=== PATIENT | male | born 1945 | race Caucasian/White ===

== ENCOUNTER 2018-07-25 21:21 | Inpatient (IN) | payer MEDICARE ==
[2018-07-25] MEDS ORDERED: methylPREDNISolone SOD SUCCI 125 MG/2 ML VIAL IV STA (21:55)
[2018-07-25] MEDS ORDERED: SODIUM CHLORIDE 0.9% 1,000 ML IV STA (21:55)
[2018-07-25] MEDS ORDERED: IPRATROPIUM-ALBUTEROL 3 ML NEB INHALATION STA (21:55)
--- NOTE | 2018-07-25 22:01 | ED ---
SOB HPI - General Chief Complaint: Shortness of Breath Stated Complaint: SOB/fever Time Seen by Provider: 07/25/18 21:34 Source: patient, family, RN notes reviewed Mode of arrival: wheelchair Limitations: no limitations - History of Present Illness Initial Comments: This is a 73-year-old male with a history of asbestosis who presents with complaints of shortness of breath cough with fevers chills sweats phlegm production is yellow and green phlegm on left-sided chest discomfort. This is been over last couple days. He has had what he believes is adequate nutrition. MD Complaint: shortness of breath, cough - Related Data Home Medications Medication Instructions Recorded Confirmed Dipyridamole-Aspirin 200-25 mg 1 cap PO BID 04/27/14 07/25/18 [Aggrenox 25MG -200MG] Lisinopril-Hctz 10-12.5 mg 1 tab PO DAILY 04/27/14 07/25/18 [Zestoretic 10-12.5] Mometasone Inhalr 220 Mcg/Puff 2 puff INHALATION RT-HS 04/27/14 07/25/18 [Asmanex] Guaifenesin/Dextromethorphan 1 - 2 cap PO Q6HR PRN MDD 8 TABS 07/25/18 07/25/18 [Coricidin Hbp Softgel] Olodaterol HCl [Striverdi Respimat] 2 spray INHALATION RT-DAILY 07/25/18 Tiotropium [place] [Spiriva 1 puff INHALATION RT-DAILY 07/25/18 07/25/18 Respimat] rOPINIRole HCL [Requip] 5 mg PO HS 07/25/18 07/25/18 Allergies Allergy/AdvReac Type Severity Reaction Status Date / Time No Known Allergies Allergy Verified 07/25/18 21:39 Review of Systems ROS Statement: Those systems with pertinent positive or pertinent negative responses have been documented in the HPI. ROS Other: All systems not noted in ROS Statement are negative. Past Medical History Past Medical History: COPD, CVA/TIA, GERD/Reflux, Hyperlipidemia, Hypertension Additional Past Medical History / Comment(s): PT STATES HAS HAD NUMEROUS TIA'S. CHRONIC BACK PAIN, AORTIC ANEURYSM, ON O2 2L/NC 24/7 History of Any Multi-Drug Resistant Organisms: None Reported Past Surgical History: Back Surgery, Hernia Repair Additional Past Surgical History / Comment(s): COLONOSCOPY Past Anesthesia/Blood Transfusion Reactions: No Reported Reaction Past Psychological History: Anxiety, Depression Smoking Status: Former smoker Past Alcohol Use History: None Reported Past Drug Use History: None Reported - Past Family History Mother Family Medical History: Cancer Brother(s) Family Medical History: Cancer General Exam - General Exam Comments Initial Comments: This is a well-developed well-nourished awake alert oriented times 3 male Limitations: no limitations General appearance: alert Head exam: Present: atraumatic, normocephalic, normal inspection Eye exam: Present: normal appearance, PERRL, EOMI. Absent: scleral icterus, conjunctival injection, periorbital swelling ENT exam: Present: mucous membranes dry Neck exam: Present: normal inspection. Absent: tenderness, meningismus, lymphadenopathy Respiratory exam: Present: rhonchi (Left lower lobe rhonchi), decreased breath sounds. Absent: respiratory distress, wheezes, rales, stridor Cardiovascular Exam: Present: regular rate, normal rhythm, normal heart sounds. Absent: systolic murmur, diastolic murmur, rubs, gallop, clicks GI/Abdominal exam: Present: soft, normal bowel sounds. Absent: distended, tenderness, guarding, rebound, rigid Extremities exam: Present: normal inspection, full ROM, normal capillary refill. Absent: tenderness, pedal edema, joint swelling, calf tenderness Back exam: Present: normal inspection Neurological exam: Present: alert, oriented X3, CN II-XII intact Psychiatric exam: Present: normal affect, normal mood Skin exam: Present: warm, dry, intact, normal color. Absent: rash Course Vital Signs 07/25/18 07/25/18 07/25/18 21:23 22:07 22:18 Temperature 101 F H Pulse Rate 100 80 89 Respiratory 20 Rate Blood Pressure 134/66 O2 Sat by Pulse 89 L Oximetry 07/25/18 07/26/18 23:07 00:20 Temperature Pulse Rate 85 84 Respiratory 16 20 Rate Blood Pressure 113/64 105/64 O2 Sat by Pulse 96 95 Oximetry Medical Decision Making - Medical Decision Making Reevaluation patient reveals the patient is breathing better he still has wheezing is still short of breath I did discuss Pfizer him and his family as well as with Dr. Antonio patient will be admitted for evaluation of interstitial pneumonia COPD exacerbation febrile illness - Lab Data Result diagrams: 07/25/18 21:42 07/25/18 21:42 Lab Results 07/25/18 07/25/18 07/25/18 Range/Units 21:42 21:42 21:42 WBC 13.6 H (3.8-10.6) k/uL RBC 4.11 L (4.30-5.90) m/uL Hgb 12.4 L (13.0-17.5) gm/dL Hct 38.4 L (39.0-53.0) % MCV 93.5 (80.0-100.0) fL MCH 30.0 (25.0-35.0) pg MCHC 32.1 (31.0-37.0) g/dL RDW 13.3 (11.5-15.5) % Plt Count 303 (150-450) k/uL Neutrophils % 83 % Lymphocytes % 9 % Monocytes % 6 % Eosinophils % 1 % Basophils % 0 % Neutrophils # 11.3 H (1.3-7.7) k/uL Lymphocytes # 1.2 (1.0-4.8) k/uL Monocytes # 0.7 (0-1.0) k/uL Eosinophils # 0.2 (0-0.7) k/uL Basophils # 0.0 (0-0.2) k/uL PT (9.0-12.0) sec INR (<1.2) APTT (22.0-30.0) sec Sodium 139 (137-145) mmol/L Potassium 4.2 (3.5-5.1) mmol/L Chloride 108 H (98-107) mmol/L Carbon Dioxide 24 (22-30) mmol/L Anion Gap 7 mmol/L BUN 20 (9-20) mg/dL Creatinine 1.08 (0.66-1.25) mg/dL Est GFR (CKD-EPI)AfAm 78 (>60 ml/min/1.73 sqM) Est GFR (CKD-EPI)NonAf 67 (>60 ml/min/1.73 sqM) Glucose 110 H (74-99) mg/dL Calcium 9.2 (8.4-10.2) mg/dL Magnesium 2.0 (1.6-2.3) mg/dL Total Bilirubin 0.4 (0.2-1.3) mg/dL AST 25 (17-59) U/L ALT 27 (21-72) U/L Alkaline Phosphatase 68 (38-126) U/L Total Creatine Kinase 214 H (55-170) U/L CK-MB (CK-2) 3.8 H (0.0-2.4) ng/mL CK-MB (CK-2) Rel Index 1.8 Troponin I <0.012 (0.000-0.034) ng/mL NT-Pro-B Natriuret Pep pg/mL Total Protein 5.9 L (6.3-8.2) g/dL Albumin 3.3 L (3.5-5.0) g/dL 07/25/18 07/25/18 Range/Units 21:42 21:42 WBC (3.8-10.6) k/uL RBC (4.30-5.90) m/uL Hgb (13.0-17.5) gm/dL Hct (39.0-53.0) % MCV (80.0-100.0) fL MCH (25.0-35.0) pg MCHC (31.0-37.0) g/dL RDW (11.5-15.5) % Plt Count (150-450) k/uL Neutrophils % % Lymphocytes % % Monocytes % % Eosinophils % % Basophils % % Neutrophils # (1.3-7.7) k/uL Lymphocytes # (1.0-4.8) k/uL Monocytes # (0-1.0) k/uL Eosinophils # (0-0.7) k/uL Basophils # (0-0.2) k/uL PT 10.4 (9.0-12.0) sec INR 1.1 (<1.2) APTT 28.1 (22.0-30.0) sec Sodium (137-145) mmol/L Potassium (3.5-5.1) mmol/L Chloride (98-107) mmol/L Carbon Dioxide (22-30) mmol/L Anion Gap mmol/L BUN (9-20) mg/dL Creatinine (0.66-1.25) mg/dL Est GFR (CKD-EPI)AfAm (>60 ml/min/1.73 sqM) Est GFR (CKD-EPI)NonAf (>60 ml/min/1.73 sqM) Glucose (74-99) mg/dL Calcium (8.4-10.2) mg/dL Magnesium (1.6-2.3) mg/dL Total Bilirubin (0.2-1.3) mg/dL AST (17-59) U/L ALT (21-72) U/L Alkaline Phosphatase (38-126) U/L Total Creatine Kinase (55-170) U/L CK-MB (CK-2) (0.0-2.4) ng/mL CK-MB (CK-2) Rel Index Troponin I (0.000-0.034) ng/mL NT-Pro-B Natriuret Pep 162 pg/mL Total Protein (6.3-8.2) g/dL Albumin (3.5-5.0) g/dL - EKG Data -: EKG Interpreted by Me EKG shows normal: sinus rhythm (Sinus rhythm rate 84. Interval 154 QRS duration 96 QT since QTC 346/4 weight evidence a left exodeviation) - Radiology Data Radiology results: report reviewed (I did review the imaging and report evidence of interstitial markings), image reviewed Critical Care Time Critical Care Time: Yes Critical Care Time: 33 minutes of critical care time which includes initial presentation with history physical labs x-rays reevaluation patient several occasions discuss with the patient family regarding findings discussed with the family that time. Discussion with the admitting physician admission orders and documentation of the above Disposition Clinical Impression: Acute exacerbation of chronic obstructive airways disease, Adult respiratory distress syndrome, Interstitial pneumonia, Febrile illness, acute Disposition: ADMITTED IP TO THIS [facility] Referrals: Luis Price MD [Primary Care Provider] - 1-2 days
[2018-07-25 22:09] LABS: Basophils % (A) 0 %; Eosinophils # (A) 0.2 k/uL (0-0.7); Eosinophils % (A) 1 %; HCT 38.4 % (39.0-53.0); HGB 12.4 gm/dL (13.0-17.5); Lymphocytes # (A) 1.2 k/uL (1.0-4.8); Lymphocytes % (A) 9 %; MCHC 32.1 g/dL (31.0-37.0); MCV 93.5 fL (80.0-100.0); Mean Platelet Volume 6.7; Monocytes # (A) 0.7 k/uL (0-1.0); Monocytes % (A) 6 %; Neutrophils # (A) 11.3 k/uL (1.3-7.7); Neutrophils % (A) 83 %; Platelet Count 303 k/uL (150-450); RBC 4.11 m/uL (4.30-5.90); RDW 13.3 % (11.5-15.5); WBC 13.6 k/uL (3.8-10.6)
--- NOTE | 2018-07-25 22:13 | XR ---
EXAMINATION TYPE: XR chest 2V DATE OF EXAM: 07/25/2018 COMPARISON: 06/23/1713 HISTORY: Short of breath TECHNIQUE: Frontal and lateral views of the chest are obtained. FINDINGS: There is extensive pulmonary interstitial infiltrate. Heart size is normal. There is no pl eural effusion. Thoracic aorta is atheromatous. Bony thorax is intact. IMPRESSION: Pulmonary interstitial fibrosis improved slightly compared to old exam. No heart failure .
[2018-07-25 22:19] LABS: Albumin 3.3 g/dL (3.5-5.0); Calcium 9.2 mg/dL (8.4-10.2); Potassium 4.2 mmol/L (3.5-5.1); Total Bilirubin 0.4 mg/dL (0.2-1.3); Total Protein 5.9 g/dL (6.3-8.2)
[2018-07-25 22:20] LABS: INR 1.1 (<1.2); Partial Thromboplastin Time 28.1 sec (22.0-30.0); Prothrombin Time 10.4 sec (9.0-12.0)
[2018-07-25 22:24] LABS: Creatine Kinase 214 U/L (55-170)
[2018-07-25 22:37] LABS: Creatine Kinase MB 3.8 ng/mL (0.0-2.4); Troponin I <0.012 ng/mL (0.000-0.034)
[2018-07-26] MEDS ORDERED: PNEUMONIA PROTOCOL UTILIZED 1 EACH MISC PO PRN (00:57)
[2018-07-26] MEDS ORDERED: AZITHROMYCIN 500 MG in SODIUM CHLORIDE 0.9% 250 ML IVPB STA (00:57)
[2018-07-26] MEDS ORDERED: ACETAMINOPHEN TAB 325 MG TAB PO PRN (01:02)
[2018-07-26] MEDS: SODIUM CHLORIDE 0.9% 1,000 ML IV SCH ×2 (02:10→11:29)
[2018-07-26 02:29] VITALS: BMI 25.1
[2018-07-26] MEDS ORDERED: IPRATROPIUM-ALBUTEROL 3 ML NEB INHALATION SCH (04:00)
[2018-07-26] MEDS: methylPREDNISolone SOD SUCCI 125 MG/2 ML VIAL IV SCH ×3 (05:50→17:07)
[2018-07-26] MEDS: LISINOPRIL-HCTZ 10-12.5 MG 1 EACH TAB PO SCH (07:15)
[2018-07-26] MEDS: DIPYRIDAMOLE-ASPIRIN 200-25 MG 1 EACH CPMP.12HR PO SCH ×2 (07:15→21:47)
[2018-07-26 07:31] LABS: Glucose,Whole Blood 167 mg/dL (75-99)
[2018-07-26] MEDS: IPRATROPIUM-ALBUTEROL 3 ML NEB INHALATION SCH ×4 (07:44→19:45)
[2018-07-26 11:23] LABS: Glucose,Whole Blood 207 mg/dL (75-99)
[2018-07-26] MEDS: INSULIN ASPART 100 UNIT/ML 1 ML 10 ML VIAL SQ SCH ×3 (12:38→21:50)
--- NOTE | 2018-07-26 12:47 | P.CNPUL ---
History of Present Illness Consult date: 07/26/18 Reason for consult: dyspnea History of present illness: 73-year-old male patient with known history of COPD, asbestosis, and pulmonary fibrosis. The patient is also post-ARDS related to a previous pneumonia. He has an FEV1 of 79% and a DLCO of 37% and he is O3 3l/min. The patient is seeing me for his routine checkup. I repeated a CAT scan of the chest that was done in 2015 and this was compared to the prior CAT scan of 2014. There is again bilateral emphysematous change, pleural plaquing related to asbestosis, some on a combination in the lung bases bilaterally however in comparison there is no significant interval change or progression in his pulmonary fibrosis. On previous CT images of the abdomen and the chest, There was some emphysema and scarring in the lung bases, and adrenal adenoma measuring 1.4 cm in size, a stable abdominal aortic aneurysm measuring 3.8 cm in size, and prostate enlargement with bilateral inguinal hernias. He has severe degenerative disc disease at the level of L4-L5 and L2-L3 with loss of normal lordosis of the spine and chronic rib deformity suggestive of previous trauma.the patient was having abnormal weight loss which has recovered and he is up in his weight. He is currently on a combination of Spiriva, Asmanex and Striverdi and [facility] This patient was in a good state of health. Approximately a week ago started having increased cough chest congestion and fever and chills and he was producing sputum that was yellowish and then greenish and he also had some left- sided chest pain. Based on that he came into the hospital. He is white cell count was at 13.6. No significant electrodes abnormalities and renal function was within normal limits. Chest x-ray showed COPD and chronic interstitial changes related to asbestosis and pulmonary fibrosis. The EKG showed left axis deviation otherwise no acute adenoma is were seen. The patient is currently on examination Rocephin and Zithromax. He was also started on IV Solu-Medrol. He has been marked improvement in symptoms over the past 24 hours and the patient is feeling much improved and nearly close to his baseline. No fever. No chills. Hemodynamically stable. No aspiration. No travel. No pleurisy. No hemoptysis. Review of Systems Constitutional: Reports chills, Reports fever Eyes: denies blurred vision, denies bulging eye, denies decreased vision Ears: deny: decreased hearing, ear discharge, earache, tinnitus Ears, nose, mouth and throat: Denies headache, Denies sore throat Cardiovascular: Reports decreased exercise tolerance, Reports dyspnea on exertion Respiratory: Reports cough, Reports cough with sputum, Reports dyspnea Gastrointestinal: Denies abdominal pain, Denies diarrhea, Denies nausea, Denies vomiting Genitourinary: Reports as per HPI Musculoskeletal: Reports as per HPI Musculoskeletal: absent: ankle pain, ankle stiffness, ankle swelling Integumentary: Denies pruritus, Denies rash Neurological: Reports as per HPI Psychiatric: Reports as per HPI Endocrine: Reports as per HPI Hematologic/Lymphatic: Reports as per HPI Allergic/Immunologic: Reports as per HPI Past Medical History Past Medical History: COPD, CVA/TIA, GERD/Reflux, Hyperlipidemia, Hypertension Additional Past Medical History / Comment(s): COPD, chronic hypoxic respiratory failure, has been stenosis, chronic back to point fibrosis, hypertension, hyperlipidemia, previous history of CVA/TIA, chronic back pain, abdominal aortic aneurysm, 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 History of Any Multi-Drug Resistant Organisms: None Reported Past Surgical History: Back Surgery, Hernia Repair Additional Past Surgical History / Comment(s): COLONOSCOPY Past Anesthesia/Blood Transfusion Reactions: No Reported Reaction Past Psychological History: Anxiety, Depression Smoking Status: Former smoker Past Alcohol Use History: None Reported Past Drug Use History: None Reported - Past Family History Mother Family Medical History: Cancer Brother(s) Family Medical History: Cancer Medications and Allergies Home Medications Medication Instructions Recorded Confirmed Type Dipyridamole-Aspirin 200-25 mg 1 cap PO BID 04/27/14 07/25/18 History [Aggrenox 25MG -200MG] Lisinopril-Hctz 10-12.5 mg 1 tab PO DAILY 04/27/14 07/25/18 History [Zestoretic 10-12.5] Mometasone Inhalr 220 Mcg/Puff 2 puff INHALATION RT-HS 04/27/14 07/25/18 History [Asmanex] Guaifenesin/Dextromethorphan 1 - 2 cap PO Q6HR PRN MDD 8 TABS 07/25/18 07/25/18 History [Coricidin Hbp Softgel] Olodaterol HCl [Striverdi Respimat] 2 spray INHALATION RT-DAILY 07/25/18 History Tiotropium [place] [Spiriva 1 puff INHALATION RT-DAILY 07/25/18 07/25/18 History Respimat] rOPINIRole HCL [Requip] 5 mg PO HS 07/25/18 07/25/18 History Allergies Allergy/AdvReac Type Severity Reaction Status Date / Time No Known Allergies Allergy Verified 07/25/18 21:39 Physical Exam Vitals: Vital Signs Temp Pulse Pulse Resp BP BP Pulse Ox 07/26/18 07:52 92 07/26/18 07:45 95 07/26/18 07:44 88 07/26/18 07:10 18 07/26/18 05:40 98.7 F 84 24 130/73 95 07/26/18 01:22 99.9 F H 76 16 117/67 96 07/26/18 00:20 84 20 105/64 95 07/25/18 23:07 85 16 113/64 96 07/25/18 22:18 89 07/25/18 22:07 80 07/25/18 21:23 101 F H 100 20 134/66 89 L Intake and Output 07/25/18 07/26/18 07/26/18 22:59 06:59 14:59 Other: Voiding Method Toilet Weight 81.647 kg 81.64 kg Gen. appearance, comfortable likely distress. Head exam was generally normal. There was no scleral icterus or corneal arcus. Mucous membranes were moist. Neck was supple and without jugular venous distension, thyromegaly, or carotid bruits. Carotids were easily palpable bilaterally. There was no adenopathy. Lungs sounds are diminished and the patient has coarse crackles in lung bases bilaterally. The crackles are worse on the right compared to the left. Few scattered expiratory wheeze. Cardiac exam revealed the PMI to be normally situated and sized. The rhythm was regular and no extrasystoles were noted during several minutes of auscultation. The first and second heart sounds were normal and physiologic splitting of the second heart sound was noted. There were no murmurs, rubs, clicks, or gallops. Abdominal exam revealed normal bowel sounds. The abdomen was soft, non-tender, and without masses, organomegaly, or appreciable enlargement of the abdominal aorta. Examination of the extremities revealed easily palpable radial, femoral and pedal pulses. There was no cyanosis, clubbing or edema. Examination of the skin revealed no evidence of significant rashes, suspicious appearing nevi or other concerning lesions. Neurologically awake and alert and there is no focal neurological deficit Results - Laboratory Findings CBC and BMP: 07/25/18 21:42 07/25/18 21:42 PT/INR, D-dimer PT 10.4 sec (9.0-12.0) 07/25/18 21:42 INR 1.1 (<1.2) 07/25/18 21:42 Abnormal lab findings: Abnormal Labs 07/25/18 07/25/18 07/25/18 21:42 21:42 21:42 WBC 13.6 H RBC 4.11 L Hgb 12.4 L Hct 38.4 L Neutrophils # 11.3 H Chloride 108 H Glucose 110 H POC Glucose (mg/dL) Total Creatine Kinase 214 H CK-MB (CK-2) 3.8 H Total Protein 5.9 L Albumin 3.3 L 07/26/18 06:55 WBC RBC Hgb Hct Neutrophils # Chloride Glucose POC Glucose (mg/dL) 167 H Total Creatine Kinase CK-MB (CK-2) Total Protein Albumin - Diagnostic Findings Chest x-ray: image reviewed Assessment and Plan Plan: Assessment 1 acute COPD exacerbation/acute orchitis, improving. The patient's chest x-ray shows no evidence of any pneumonias consistent with tonic COPD and interstitial lung disease secondary to asbestosis. He also has chronic pulmonary fibrotic changes 2 shortness of breath secondary to above, improving 3 advanced COPD with chronic hypoxic respiratory failure maintained on a combination of Spiriva, Asmanex and Striverdi on outpatient basis 4 chronic hypoxic respiratory failure maintained on oxygen at 3 L per minute nasal cannula 5 adrenal adenoma measuring 1.4 cm 6 abdominal aortic aneurysm measuring 2.8 cm in size 7 bilaterally without hernias 8 BPH 9 degenerative disc disease involving the lumbar spine 10 previous history of TIAs/multiple/CVA 11 chronic anxiety/depression Plan Clinically much improved. Continue same treatment which includes a combination of bronchodilators there was an antibiotics. Patient is nearly recovered and the patient is feeling back to his baseline. Reviewed the chest x-ray. Reviewed the blood work. We'll continue treatment for another 24 hours and possible discharge in the next 24 hours if the patient has no new complaints.
[2018-07-26 17:25] LABS: Glucose,Whole Blood 189 mg/dL (75-99)
[2018-07-26 20:42] LABS: Glucose,Whole Blood 231 mg/dL (75-99)
[2018-07-26 21:16] LABS: Hemoglobin A1C 6.1 % (4.0-6.0)
[2018-07-26] MEDS ORDERED: LACTULOSE 20 GM/30 ML CUP PO PRN (21:16)
[2018-07-26] MEDS: BUDESONIDE 1 MG/2 ML NEBU INHALATION SCH (21:16)
[2018-07-26] MEDS ORDERED: MELATONIN 3 MG TABLET PO PRN (21:16)
[2018-07-26] MEDS ORDERED: ALPRAZolam 0.25 MG TAB PO PRN (21:16)
[2018-07-26] MEDS ORDERED: MAGNESIUM HYDROXIDE 2,400 MG/10 ML CUP PO PRN (21:16)
[2018-07-26] MEDS ORDERED: ONDANSETRON 4 MG/2 ML VIAL IVP PRN (21:16)
[2018-07-26] MEDS: guaiFENesin 600 MG TABLET.ER PO SCH (21:51)
--- NOTE | 2018-07-26 22:25 | HP ---
HISTORY AND PHYSICAL DATE OF ADMISSION: 07/26/2018 DATE OF SERVICE: 07/26/2018. PRESENTING COMPLAINT: Short of breath, cough. HISTORY OF PRESENTING COMPLAINT: This is a very pleasant 73-year-old patient who follows with Dr. Price, his family doctor, and Dr. Mccall, his medical device sales representative. Chronic stable medical conditions include asbestosis, GERD, hypertension, hyperlipidemia, on home oxygen 3 L, anxiety, depression, restless legs syndrome. The patient is an ex-smoker and has underlying COPD. For 2 days he became more and more short of breath, cough, putting out green sputum. Denied any obvious fever or chills. Appetite a bit rundown, tired. Admitted, started on bronchodilators and antibiotics in the ER, [facility], admitted for the same. Does feel a bit tired and rundown. REVIEW OF SYSTEMS: CONSTITUTIONAL: Weak and tired. HEENT: None. RESPIRATORY: As above. CARDIOVASCULAR: None. GASTROINTESTINAL: Heartburn. GENITOURINARY: None. MUSCULOSKELETAL: Arthritic pain in the joints. DERMATOLOGICAL: None. HEMATOLOGICAL: None. LYMPHATICS: None. PSYCHIATRY: Anxiety, depression, controlled. NEUROLOGICAL: Restless leg syndrome. PAST MEDICAL HISTORY: 1. COPD. 2. Multiple TIAs. 3. GERD. 4. Hyperlipidemia. 5. Hypertension. 6. Home oxygen 3 L. 7. Abdominal aortic aneurysm. 8. Severe DJD involving the lumbar spine. 9. Abdominal aortic aneurysm, probably 4.2 cm. PAST SURGICAL HISTORY: Back surgery and hernia repair. PSYCH HISTORY: Anxiety and depression. SOCIAL HISTORY: . Used to be a outside machinist supervisor. Smoked a pack a day for close to 50 years, stopped about 5 years ago. No significant alcohol intake. FAMILY HISTORY: Cancer, type unknown. HOME MEDICATIONS: 1. Requip 5 mg b.i.d. 2. Spiriva 1 puff daily. 3. Olodaterol 2 spray inhalations daily. 4. Asmanex 2 puffs at bedtime. 5. Zestoretic 07/15.5 one tablet p.o. daily. 6. Coricidin soft gel 1-2 capsules p.o. q.6 p.r.n. 7. Aggrenox 1 capsule p.o. b.i.d. ALLERGIES: NONE. PHYSICAL EXAMINATION: VITAL SIGNS ON PRESENTATION: Temperature 101, pulse 100, respiration 20, blood pressure 134/66, pulse ox 89% on 3 L. GENERAL APPEARANCE: Average build. Sitting up, tired-appearing. EYES: Pupils equal. Conjunctivae normal. HEENT: External appearance of nose and ears normal. Oral cavity normal. NECK: JVD not raised. Mass not palpable. RESPIRATORY: Effort increased. LUNGS: Decreased breath sounds. Prolonged expiration. Scattered coarse crackles. CARDIOVASCULAR: First and second sounds normal. No edema. ABDOMEN: Soft, non-tender. Liver and spleen not palpable. LYMPHATIC: No lymph node palpable in neck or axillae. PSYCHIATRY: Alert and oriented x3. Mood and affect normal. NEUROLOGICAL: Pupils equal. Cranial nerves grossly intact. Power and sensation grossly intact. MUSCULOSKELETAL: Evidence of osteoarthritis, especially in the hands. INVESTIGATIONS: White count 13.6, hemoglobin 12.4, potassium 4.2. BUN and creatinine are normal. Troponin negative. ProBNP 162. Chest x-ray film, personally reviewed by me; cannot differentiate extensive pulmonary interstitial infiltrates from acute on chronic form. EKG tracing, personally reviewed by me, shows normal sinus rhythm. ASSESSMENT: 1. This is a patient who has got chronic lung changes but had a fever of 101, leukocytosis and sputum production; most likely underlying pneumonia, suspect gram- negative organism with the sputum green in color. 2. Acute chronic obstructive pulmonary disease exacerbation in an ex-smoker. 3. Acute hypoxic respiratory failure, present on admission, from underlying pneumonia and chronic obstructive pulmonary disease. 4. Chronic hypoxic respiratory failure. 5. Chronic asbestosis. 6. Gastroesophageal reflux disease. 7. Essential hypertension. 8. Hyperlipidemia. 9. Anxiety and depression not otherwise specified. 10.Restless legs syndrome. PLAN: Patient is started on IV antibiotics. Sputum will be sent off for Gram stain and culture. Will add Mucinex. Home medications are resumed. Patient also was put on IV Solu-Medrol; also given IV fluids. Lovenox for DVT prophylaxis. Care was discussed with the patient. Questions were answered. MMODL / IJN: [id number] /
[2018-07-27] MEDS: SODIUM CHLORIDE 0.9% 1,000 ML IV SCH ×3 (00:17→18:21)
[2018-07-27] MEDS: methylPREDNISolone SOD SUCCI 125 MG/2 ML VIAL IV SCH ×4 (00:18→18:20)
[2018-07-27] MEDS ORDERED: AZITHROMYCIN 500 MG TAB PO SCH (01:00)
[2018-07-27] MEDS: BUDESONIDE 1 MG/2 ML NEBU INHALATION SCH ×2 (07:45→20:52)
[2018-07-27] MEDS: IPRATROPIUM-ALBUTEROL 3 ML NEB INHALATION SCH ×4 (07:45→20:52)
[2018-07-27 07:46] LABS: Glucose,Whole Blood 145 mg/dL (75-99)
[2018-07-27] MEDS: DIPYRIDAMOLE-ASPIRIN 200-25 MG 1 EACH CPMP.12HR PO SCH ×2 (08:17→21:52)
[2018-07-27] MEDS: guaiFENesin 600 MG TABLET.ER PO SCH ×2 (08:17→21:52)
[2018-07-27] MEDS: INSULIN ASPART 100 UNIT/ML 1 ML 10 ML VIAL SQ SCH ×4 (08:17→21:59)
[2018-07-27] MEDS: LISINOPRIL-HCTZ 10-12.5 MG 1 EACH TAB PO SCH (08:17)
[2018-07-27] MEDS: ENOXAPARIN 40 MG/0.4 ML SYRINGE SQ SCH (08:18)
--- NOTE | 2018-07-27 09:42 | XR ---
EXAMINATION TYPE: XR chest 2V DATE OF EXAM: 07/27/2018 COMPARISON: 07/25/2018 TECHNIQUE: PA and lateral views submitted. HISTORY: Pneumonia, difficulty breathing FINDINGS: Diffuse interstitial pattern suggestive of chronic interstitial lung disease. Findings are similar to the prior exam. No sizable pleural effusion or pneumothorax. Findings are suspicious for a mass with in the left upper lobe measuring 1.6 cm. Atherosclerotic change of the aorta is noted. Ectasia of the aortic knob. Aneurysm not excluded. IMPRESSION: 1. Interstitial pattern is stable correlate for chronic interstitial pulmonary fibrosis. Superimposed pneumonitis not excluded. Superimposed left lower lobe infiltrate not excluded. 2. There is findings suggestive of a 1.5 cm left upper lobe pulmonary mass recommend CT chest.
[2018-07-27 12:21] LABS: Glucose,Whole Blood 192 mg/dL (75-99)
--- NOTE | 2018-07-27 13:47 | CDI ---
Last Revision, September 2017 Documentation Clarification Form Date: 07/26/18 From: Edilma De La Garza RN Admit Date: 07/26/2018 12:56:00 pm Patient Name: Jono Carlson Visit Number: [id number] ATTENTION: The Clinical Documentation Specialists (CDI) and [facility] Coding Staff appreciate your assistance in clarifying documentation. Please respond to the clarification below the line at the bottom and electronically sign. The CDI & [facility] Coding staff will review the response and follow-up if needed. Please note: Queries are made part of the Legal Health Record. If you have any questions, please contact the author of this message via ITS. Heath Cox MD, Can you please render your opinion on the following documentation? Pt. was admitted with cough, fevers, chills sweats, phlegm production yellow and green, left sided chest discomfort, acute exacerbation COPD, adult respiratory distress syndrome, interstitial pneumonia, febrile illness History/Risk Factors: asbestosis, HTN, hyperlipidemia, home oxygen 3L, TIA, syndrome, COPD, ex-smoker, abdominal aortic aneurysm Clinical Indicators: WBC on admission: 13.6 Lactic acid: not drawn Blood cultures: preliminary no growth after 24 hours Sputum culture: polymorphonuclear leukocytes, epithelial cells, moderate gram positive cocci, few gram positive bacilli, rare gram neg. bacilli. Vitals signs on admission: T 101, P 100, R 20, 134/66, 89% 3L Treatment: Antibiotics: Azithromycin IVPB, Ceftriaxone IVPB, Pneumonia protocol Tylenol In your professional opinion, please clarify if these findings signify one of the following conditions, whether the condition is POA, and cause, if known: Condition Sepsis ruled in Sepsis ruled out SIRS, without underlying infectious process Other, please specify Unable to determine Present on Admission: Yes No Identify the (suspected) organism SIRS Criteria...2 or more of the following may indicate SIRS: Temperature < 96.8F (36C) or > 101.0F (38.3C) Heart Rate > 90 bpm Respiratory Rate > 20 breaths/min or PaCO2 < 32 mmHg White Blood Cell Count > 12,000 or < 4,000 cells/mm3 or > 10% bands Lactate >2.0 mmol/L (>4.0 is equivalent to septic shock) see my documentation-addressed Please continue to document in your progress notes and discharge summary in order to capture severity of illness and risk of mortality. Include clinical findings that support your diagnosis. MTDD
--- NOTE | 2018-07-27 17:18 | P.PN ---
Subjective Progress Note Date: 07/27/18 73-year-old male patient with known history of COPD, asbestosis, and pulmonary fibrosis. The patient is also post-ARDS related to a previous pneumonia. He has an FEV1 of 79% and a DLCO of 37% and he is O3 3l/min. The patient is seeing me for his routine checkup. I repeated a CAT scan of the chest that was done in 2015 and this was compared to the prior CAT scan of 2014. There is again bilateral emphysematous change, pleural plaquing related to asbestosis, some on a combination in the lung bases bilaterally however in comparison there is no significant interval change or progression in his pulmonary fibrosis. On previous CT images of the abdomen and the chest, There was some emphysema and scarring in the lung bases, and adrenal adenoma measuring 1.4 cm in size, a stable abdominal aortic aneurysm measuring 3.8 cm in size, and prostate enlargement with bilateral inguinal hernias. He has severe degenerative disc disease at the level of L4-L5 and L2-L3 with loss of normal lordosis of the spine and chronic rib deformity suggestive of previous trauma.the patient was having abnormal weight loss which has recovered and he is up in his weight. He is currently on a combination of Spiriva, Asmanex and Striverdi and [facility] This patient was in a good state of health. Approximately a week ago started having increased cough chest congestion and fever and chills and he was producing sputum that was yellowish and then greenish and he also had some left- sided chest pain. Based on that he came into the hospital. He is white cell count was at 13.6. No significant electrodes abnormalities and renal function was within normal limits. Chest x-ray showed COPD and chronic interstitial changes related to asbestosis and pulmonary fibrosis. The EKG showed left axis deviation otherwise no acute adenoma is were seen. The patient is currently on examination Rocephin and Zithromax. He was also started on IV Solu-Medrol. He has been marked improvement in symptoms over the past 24 hours and the patient is feeling much improved and nearly close to his baseline. No fever. No chills. Hemodynamically stable. No aspiration. No travel. No pleurisy. No hemoptysis. On 07/27/2018 I'm seeing this patient for a follow-up. Much improved. He is emanating in the hallway. No significant chest pain and shortness of breath or any other respiratory difficulties for now. Much improved and he continues to show ongoing improvement. He is on Rocephin and Zithromax combination. He is on IV Solu-Medrol 60 mg every 6 hours. No chest pain. No nausea. No vomiting. No abdominal pain. No altered mentation. Objective - Vital Signs Vital signs: Vital Signs Temp 97.9 F 07/27/18 15:58 Pulse 82 07/27/18 16:54 Resp 22 07/27/18 16:00 BP 103/55 07/27/18 15:58 Pulse Ox 95 07/27/18 15:58 Intake & Output 07/26/18 07/27/18 07/27/18 18:59 06:59 18:59 Intake Total 1080 1025 1200 Balance 1080 1025 1200 Weight 81.64 kg Intake: Oral 1080 1025 1200 Other: Voiding Method Toilet Toilet Toilet # Voids 2 2 3 - Exam Gen. appearance, comfortable likely distress. Head exam was generally normal. There was no scleral icterus or corneal arcus. Mucous membranes were moist. Neck was supple and without jugular venous distension, thyromegaly, or carotid bruits. Carotids were easily palpable bilaterally. There was no adenopathy. Lungs sounds are diminished and the patient has coarse crackles in lung bases bilaterally. The crackles are worse on the right compared to the left. Few scattered expiratory wheeze. Cardiac exam revealed the PMI to be normally situated and sized. The rhythm was regular and no extrasystoles were noted during several minutes of auscultation. The first and second heart sounds were normal and physiologic splitting of the second heart sound was noted. There were no murmurs, rubs, clicks, or gallops. Abdominal exam revealed normal bowel sounds. The abdomen was soft, non-tender, and without masses, organomegaly, or appreciable enlargement of the abdominal aorta. Examination of the extremities revealed easily palpable radial, femoral and pedal pulses. There was no cyanosis, clubbing or edema. Examination of the skin revealed no evidence of significant rashes, suspicious appearing nevi or other concerning lesions. Neurologically awake and alert and there is no focal neurological deficit - Labs CBC & Chem 7: 07/25/18 21:42 07/25/18 21:42 Labs: Abnormal Lab Results - Last 24 Hours (Table) 07/25/18 07/26/18 07/26/18 Range/Units 21:42 17:22 20:39 POC Glucose (mg/dL) 189 H 231 H (75-99) mg/dL Hemoglobin A1c 6.1 H (4.0-6.0) % 07/27/18 07/27/18 Range/Units 07:30 12:18 POC Glucose (mg/dL) 145 H 192 H (75-99) mg/dL Hemoglobin A1c (4.0-6.0) % Microbiology - Last 24 Hours (Table) 07/26/18 17:41 Gram Stain - Preliminary Sputum Sputum Culture - Preliminary 07/25/18 21:42 Blood Culture - Preliminary Blood No Growth after 24 hours Assessment and Plan Plan: Assessment 1 acute COPD exacerbation/acute bronchitis, improving 2 shortness of breath secondary to above, improving 3 advanced COPD with chronic hypoxic respiratory failure maintained on a combination of Spiriva, Asmanex and Striverdi on outpatient basis 4 chronic hypoxic respiratory failure maintained on oxygen at 3 L per minute nasal cannula 5 adrenal adenoma measuring 1.4 cm 6 abdominal aortic aneurysm measuring 2.8 cm in size 7 bilaterally without hernias 8 BPH 9 degenerative disc disease involving the lumbar spine 10 previous history of TIAs/multiple/CVA 11 chronic anxiety/depression Plan Continue treatment for another 24 hours. Discharge this patient home tomorrow on a prednisone burst taper. Much improved on today's evaluation.
[2018-07-27 17:57] LABS: Glucose,Whole Blood 171 mg/dL (75-99)
[2018-07-27 21:02] LABS: Glucose,Whole Blood 203 mg/dL (75-99)
--- NOTE | 2018-07-27 21:20 | PN ---
PROGRESS NOTE DATE OF SERVICE: July 27, 2018. PRESENT COMPLAINT: Cough, short of breath. INTERVAL HISTORY: This patient presented with cough, shortness of breath, green sputum, fever, chills, treat for pneumonia and COPD exacerbation. Feeling better today. Appetite is getting better. Some sore throat. Sputum production is going down. REVIEW OF SYSTEMS: Done for constitutional, cardiovascular, GI, pulmonary and relevant findings as above. CURRENT MEDICATIONS: Reviewed that include IV ceftriaxone, IV Solu-Medrol DuoNeb. PHYSICAL EXAMINATION: VITAL SIGNS: Temperature 97.9, pulse 78, respiration 22, blood pressure 103/55, pulse ox 95% on 2 L. GENERAL APPEARANCE: Sitting up in a chair, more comfortable. EYES: Pupils equal. Conjunctivae normal. HEENT external appearance of nose and ears normal. Oral cavity normal. NECK: JVD not raised. Mass not palpable. RESPIRATORY: Effort increased. LUNGS: Decreased breath sounds. Decreased expiration. CARDIOVASCULAR: 1st and 2nd sounds, no edema. ABDOMEN: Soft, nontender. Liver and spleen not palpable. PSYCHIATRY: Alert and oriented x3. Mood and affect normal. INVESTIGATIONS: Accu-Cheks noted. ASSESSMENT: 1. Pneumonia suspect gram-negative organism present on admission causing sepsis with clinical response. 2. Acute chronic obstructive pulmonary disease exacerbation in an ex-smoker. 3. Acute hypoxic respiratory failure present on admission from pneumonia and chronic obstructive pulmonary disease exacerbation. 4. Chronic hypoxic respiratory failure from chronic obstructive pulmonary disease. 5. Chronic asbestosis. 6. Gastroesophageal reflux disease. 7. Essential hypertension. 8. Hyperlipidemia. 9. Anxiety and depression, not otherwise specified. 10.Restless legs syndrome. PLAN: We will continue another 24 hours of IV antibiotics. Overall, patient is looking better. Encouraged to ambulate. Sputum cultures are pending. MMODL / IJN: [id number] /
[2018-07-27] MEDS: CALCIUM CARBONATE 500 MG CHEWABLE PO PRN (21:51)
[2018-07-28] MEDS: SODIUM CHLORIDE 0.65% NASAL SPRAY 44 ML BTL NASAL PRN ×2 (00:15→06:14)
[2018-07-28 01:40] VITALS: RESP 18
[2018-07-28] MEDS ORDERED: methylPREDNISolone SOD SUCCI 40 MG/ML 1 ML VIAL IV SCH (06:00)
[2018-07-28] MEDS: CALCIUM CARBONATE 500 MG CHEWABLE PO PRN ×2 (06:46→14:05)
[2018-07-28 07:32] VITALS: BP 122/73; TEMP 97.6
[2018-07-28] MEDS: SODIUM CHLORIDE 0.9% 1,000 ML IV SCH ×2 (07:44→14:19)
[2018-07-28] MEDS: LISINOPRIL-HCTZ 10-12.5 MG 1 EACH TAB PO SCH (07:46)
[2018-07-28] MEDS: ENOXAPARIN 40 MG/0.4 ML SYRINGE SQ SCH (07:46)
[2018-07-28] MEDS: guaiFENesin 600 MG TABLET.ER PO SCH (07:47)
[2018-07-28 07:53] LABS: Glucose,Whole Blood 164 mg/dL (75-99)
[2018-07-28] MEDS: INSULIN ASPART 100 UNIT/ML 1 ML 10 ML VIAL SQ SCH ×2 (07:55→12:38)
[2018-07-28] MEDS: DIPYRIDAMOLE-ASPIRIN 200-25 MG 1 EACH CPMP.12HR PO SCH (09:09)
[2018-07-28] MEDS: IPRATROPIUM-ALBUTEROL 3 ML NEB INHALATION SCH ×2 (09:40→12:29)
[2018-07-28] MEDS: BUDESONIDE 1 MG/2 ML NEBU INHALATION SCH (09:40)
[2018-07-28 12:03] LABS: Glucose,Whole Blood 125 mg/dL (75-99)
[2018-07-28 12:43] VITALS: PULSE 76
--- NOTE | 2018-07-28 14:51 | P.PN ---
Subjective Progress Note Date: 07/28/18 73-year-old male patient with known history of COPD, asbestosis, and pulmonary fibrosis. The patient is also post-ARDS related to a previous pneumonia. He has an FEV1 of 79% and a DLCO of 37% and he is O3 3l/min. The patient is seeing me for his routine checkup. I repeated a CAT scan of the chest that was done in 2015 and this was compared to the prior CAT scan of 2014. There is again bilateral emphysematous change, pleural plaquing related to asbestosis, some on a combination in the lung bases bilaterally however in comparison there is no significant interval change or progression in his pulmonary fibrosis. On previous CT images of the abdomen and the chest, There was some emphysema and scarring in the lung bases, and adrenal adenoma measuring 1.4 cm in size, a stable abdominal aortic aneurysm measuring 3.8 cm in size, and prostate enlargement with bilateral inguinal hernias. He has severe degenerative disc disease at the level of L4-L5 and L2-L3 with loss of normal lordosis of the spine and chronic rib deformity suggestive of previous trauma.the patient was having abnormal weight loss which has recovered and he is up in his weight. He is currently on a combination of Spiriva, Asmanex and Striverdi and [facility] This patient was in a good state of health. Approximately a week ago started having increased cough chest congestion and fever and chills and he was producing sputum that was yellowish and then greenish and he also had some left- sided chest pain. Based on that he came into the hospital. He is white cell count was at 13.6. No significant electrodes abnormalities and renal function was within normal limits. Chest x-ray showed COPD and chronic interstitial changes related to asbestosis and pulmonary fibrosis. The EKG showed left axis deviation otherwise no acute adenoma is were seen. The patient is currently on examination Rocephin and Zithromax. He was also started on IV Solu-Medrol. He has been marked improvement in symptoms over the past 24 hours and the patient is feeling much improved and nearly close to his baseline. No fever. No chills. Hemodynamically stable. No aspiration. No travel. No pleurisy. No hemoptysis. On 07/27/2018 I'm seeing this patient for a follow-up. Much improved. He is emanating in the hallway. No significant chest pain and shortness of breath or any other respiratory difficulties for now. Much improved and he continues to show ongoing improvement. He is on Rocephin and Zithromax combination. He is on IV Solu-Medrol 60 mg every 6 hours. No chest pain. No nausea. No vomiting. No abdominal pain. No altered mentation. On 07/28/2018, the patient is ambulating. He is calm and comfortable. No respiratory distress. He thinks that his overall pulmonary status is improved and the patient is back to his baseline. No chest pain. No swelling lower extremities. No nausea. No vomiting. No abdominal pain. No other complaints otherwise for now. Objective - Vital Signs Vital signs: Vital Signs Temp 97.6 F 07/28/18 07:00 Pulse 76 07/28/18 12:42 Resp 18 07/28/18 08:00 BP 122/73 07/28/18 07:00 Pulse Ox 94 L 07/28/18 07:00 Intake & Output 07/27/18 07/28/18 07/28/18 18:59 06:59 18:59 Intake Total 1200 750 Balance 1200 750 Intake: Oral 1200 750 Other: Voiding Method Toilet Toilet Toilet # Voids 3 1 - Exam Gen. appearance, comfortable likely distress. Head exam was generally normal. There was no scleral icterus or corneal arcus. Mucous membranes were moist. Neck was supple and without jugular venous distension, thyromegaly, or carotid bruits. Carotids were easily palpable bilaterally. There was no adenopathy. Lungs sounds are diminished and the patient has coarse crackles in lung bases bilaterally. The crackles are worse on the right compared to the left. Few scattered expiratory wheeze. Cardiac exam revealed the PMI to be normally situated and sized. The rhythm was regular and no extrasystoles were noted during several minutes of auscultation. The first and second heart sounds were normal and physiologic splitting of the second heart sound was noted. There were no murmurs, rubs, clicks, or gallops. Abdominal exam revealed normal bowel sounds. The abdomen was soft, non-tender, and without masses, organomegaly, or appreciable enlargement of the abdominal aorta. Examination of the extremities revealed easily palpable radial, femoral and pedal pulses. There was no cyanosis, clubbing or edema. Examination of the skin revealed no evidence of significant rashes, suspicious appearing nevi or other concerning lesions. Neurologically awake and alert and there is no focal neurological deficit - Labs CBC & Chem 7: 07/25/18 21:42 07/25/18 21:42 Labs: Abnormal Lab Results - Last 24 Hours (Table) 07/27/18 07/27/18 07/28/18 Range/Units 17:24 20:59 07:49 POC Glucose (mg/dL) 171 H 203 H 164 H (75-99) mg/dL 07/28/18 Range/Units 11:55 POC Glucose (mg/dL) 125 H (75-99) mg/dL Microbiology - Last 24 Hours (Table) 07/25/18 21:42 Blood Culture - Preliminary Blood No Growth after 48 hours Assessment and Plan Plan: Assessment 1 acute COPD exacerbation/acute bronchitis, improving, the patient is back to his baseline. 2 shortness of breath secondary to above, improving 3 advanced COPD with chronic hypoxic respiratory failure maintained on a combination of Spiriva, Asmanex and Striverdi on outpatient basis 4 chronic hypoxic respiratory failure maintained on oxygen at 3 L per minute nasal cannula 5 adrenal adenoma measuring 1.4 cm 6 abdominal aortic aneurysm measuring 2.8 cm in size 7 bilaterally without hernias 8 BPH 9 degenerative disc disease involving the lumbar spine 10 previous history of TIAs/multiple/CVA 11 chronic anxiety/depression Plan Discharge this patient home today to be followed up in our office on outpatient basis. No other issues for now.
[2018-07-28] MEDS ORDERED: PRAVASTATIN SODIUM 80 MG TAB PO SCH (21:00)
--- NOTE | 2018-07-29 09:04 | DS ---
DISCHARGE SUMMARY DATE OF ADMISSION: 07/26/2018 DATE OF DISCHARGE: 07/28/2018 FINAL DIAGNOSES: 1. Pneumonia suspect gram-negative organism present on admission causing sepsis. 2. Acute chronic obstructive pulmonary disease exacerbation in an ex-smoker. 3. Acute hypoxic respiratory failure present on admission from pneumonia and chronic obstructive pulmonary disease exacerbation. 4. Chronic hypoxic respiratory failure from underlying chronic obstructive pulmonary disease. 5. Chronic asbestosis. 6. Gastroesophageal reflux disease. 7. Essential hypertension. 8. Hyperlipidemia. 9. Anxiety and depression, not otherwise specified. 10.Restless legs syndrome. CONSULTATION: Dr. Mccall. HOSPITAL COURSE: This patient presented with pneumonia and COPD exacerbation with a fever on presentation. Doing much better at time of discharge, up and about. Symptoms greatly improved. On examination, temperature 97.6, pulse 69, respiration 18, blood pressure 122/73. LUNGS: Improved air entry. CARDIOVASCULAR: First and second sounds normal. INVESTIGATIONS: Accu-Cheks noted. DISCHARGE MEDICATIONS: 1. Aggrenox 1 capsule p.o. b.i.d. 2. Zestoretic 07/15.5 one tablet p.o. daily. 3. Asmanex 2 puffs q.h.s. 4. Coricidin Softgel 1 to 2 capsules q.6 p.r.n. 5. Striverdi Respimat 2 sprays daily. 6. Spiriva 1 puff daily. 7. Requip 5 mg q.h.s. 8. Pravastatin 80 mg q.h.s. 9. Ceftin 500 mg p.o. b.i.d., 6 tablets. 10.Prednisone taper. Follow up with Dr. Price on 08/02/2018. MMODL / IJN: [id number] /
== END 2018-07-28 15:08 | disposition home or self-care (01) | DRG 871 ==
LOC: EC 21:21 → 4MS4W 07-26 00:56
PROVIDERS: ADMIT Hospitalist; ATTEND Hospitalist
DX: A41.50 Gram-negative sepsis, unspecified (principal); J15.6 Pneumonia due to other Gram-negative bacteria; J96.21 Acute and chronic respiratory failure with hypoxia; J43.9 Emphysema, unspecified; J20.9 Acute bronchitis, unspecified; J61 Pneumoconiosis due to asbestos and other mineral fibers; N40.0 Benign prostatic hyperplasia without lower urinary tract symptoms; K40.20 Bilateral inguinal hernia, without obstruction or gangrene, not specified as recurrent; K21.9 Gastro-esophageal reflux disease without esophagitis; I10 Essential (primary) hypertension; E78.5 Hyperlipidemia, unspecified; M54.9 Dorsalgia, unspecified; G89.29 Other chronic pain; M47.816 Spondylosis without myelopathy or radiculopathy, lumbar region; M51.36 Other intervertebral disc degeneration, lumbar region; D35.00 Benign neoplasm of unspecified adrenal gland; I71.9 Aortic aneurysm of unspecified site, without rupture; F32.9 Major depressive disorder, single episode, unspecified; F41.9 Anxiety disorder, unspecified; G25.81 Restless legs syndrome; I71.4 Abdominal aortic aneurysm, without rupture; M19.042 Primary osteoarthritis, left hand; M95.4 Acquired deformity of chest and rib; M19.041 Primary osteoarthritis, right hand; Z99.81 Dependence on supplemental oxygen; Z79.01 Long term (current) use of anticoagulants; Z79.82 Long term (current) use of aspirin; Z79.51 Long term (current) use of inhaled steroids; Z79.899 Other long term (current) drug therapy; Z86.73 Personal history of transient ischemic attack (TIA), and cerebral infarction without residual deficits; Z87.891 Personal history of nicotine dependence; Z87.01 Personal history of pneumonia (recurrent); Z80.8 Family history of malignant neoplasm of other organs or systems
CPT/HCPCS: 36415; 71046; 80053; 82550; 82553; 83036; 83735; 83880; 84484; 85025; 85610; 85730; 87040; 87070; 87205; 93005; 94640; 94760; 96365; 96375; 99291

== ENCOUNTER → 2018-09-13 | Outpatient (CLI) | payer MEDICARE ==
--- NOTE | 2018-09-13 13:34 | CT ---
EXAMINATION TYPE: CT chest abdomen w con DATE OF EXAM: 09/13/2018 INDICATION: SOB, COPD, abd pain COMPARISON: CT chest 06/15/2016 CT DLP: 946.9 mGycm CONTRAST: Performed with Oral Contrast and with IV Contrast, patient injected with 100 mL of Isovue 300. TECHNIQUE: Axial images at 5 mm thick sections. Reconstructed images in the coronal plane. Delayed images through the kidneys. FINDINGS: CT CHEST: Portion of the thyroid visualized is normal. Vascular calcification is within the thoracic aorta. No suspicious lung nodules or focal infiltrates are present. Emphysematous changes are present. Pulmo nary fibrosis is likely present. There is a small density within the posterior left small consolidati on may be in the posterior right lower lobe superior segment. Series 4 image 31. Some peripheral dens ities in the lingula. Series 4 image 30. Compressive atelectasis may be present within the dependent portions of the lung bases. Lung measuring 0.3 cm. Series 4 image 29. No enlarged mediastinal or hilar adenopathy is evident. The ascending aorta diameter at the level of the main pulmonary artery is 3.5 cm. The main pulmonary artery diameter at the bifurcation is 2.[address] ABDOMEN: Liver: Normal Spleen: Normal Pancreas: Normal Adrenal glands: There is a 1.6 cm nodule on the left adrenal gland this was present previously and st able. Right adrenal gland is normal. Gallbladder: Normal Kidneys: No masses are evident. No hydronephrosis is present. 1.4 cm cyst on the posterior superior right kidney. An inferior medial right renal cyst measuring 1.1 cm is present. Delayed images were obtained through the kidneys, which remain unremarkable. Aorta: Vascular calcification is within the aorta. There is tortuosity and aneurysmal dilatation of the mid abdominal aorta. This has an AP dimension of 4.3 cm and terminates at the bifurcation. This b egins in the infrarenal region. Inferior vena cava: Normal. Loops of bowel within the abdomen and upper pelvis are normal. There are loops of bowel which are incompletely distended or lack oral contrast limiting their evaluation. Osseous structures: No suspicious lytic or sclerotic lesions. Facet degenerative changes are present in the lumbar spine. IMPRESSIONS: 1. Areas of increased density within the lungs discussed above. Findings can be related atelectasis a nd/or infiltrate. Underlying mass is not excluded. Follow-up is recommended. Findings are superimpose d on pulmonary fibrosis but appear to have worsened over the interval. 2. Stable 1.6 cm nodule left adrenal gland. 3. Abdominal aortic aneurysm of 4.4 cm.
== END | disposition home or self-care (01) ==
LOC: RADCTMAIN 07:26
PROVIDERS: ATTEND Internal Medicine Critical Care Medicine
DX: J98.4 Other disorders of lung (principal); I71.4 Abdominal aortic aneurysm, without rupture; E27.8 Other specified disorders of adrenal gland
CPT/HCPCS: 82565; 84520; 71260; 74160; 36415; Q9967

== ENCOUNTER 2019-01-04 10:19 | Day surgery (SDC) | payer MEDICARE ==
[2019-01-02 15:43] VITALS: BMI 23.7
--- NOTE | 2019-01-04 06:07 | P.GSHP ---
History of Present Illness H&P Date: 01/04/19 CHIEF COMPLAINT: GERD and colon screen HISTORY OF PRESENT ILLNESS: The patient is a 73-year-old male who presents with gastroesophageal reflux disease and need for colon screen. Upper and lower endoscopy were offered for further evaluation and management. PAST MEDICAL HISTORY: Please see list. PAST SURGICAL HISTORY: Please see list. MEDICATIONS: Please see list. ALLERGIES: Please see list. SOCIAL HISTORY: No illicit drug use FAMILY HISTORY: No reports of Crohn disease or ulcerative colitis. REVIEW OF ORGAN SYSTEMS: CONSTITUTIONAL: No reports of fevers or chills. GI: Denies any blood in stools or constipation. PHYSICAL EXAM: VITAL SIGNS: Stable GENERAL: Well-developed pleasant in no acute distress. HEENT: No scleral icterus. Extraocular movements grossly intact. Moist buccal mucosa. NECK: Supple without lymphadenopathy. CHEST: Unlabored respirations. Equal bilateral excursions. CARDIOVASCULAR: Regular rate and rhythm. Distal 2+ pulses. ABDOMEN: Soft, nondistended. MUSCULOSKELETAL: No clubbing, cyanosis, or edema. ASSESSMENT: 1. Gastroesophageal reflux disease 2. Colon screen. PLAN: 1. Recommend proceeding with an upper and lower endoscopy Past Medical History Past Medical History: COPD, CVA/TIA, GERD/Reflux, Hyperlipidemia, Hypertension, Pneumonia Additional Past Medical History / Comment(s): Hx of CVA's and TIA's., chronic hypoxic respiratory failure, AAA, DDD WITH BACK PAIN ., HX OF STOMACH ULCER. , ASBESTOSIS, WEARS OXYGEN AT 3.5-5 LITERS. STATES FOLLOWING WITH DR HILLIARD FOR PROSTATE., STATES STOMACH PAIN AFTER TAKING MEDS OR WITH COFFEE IN AM. History of Any Multi-Drug Resistant Organisms: None Reported Past Surgical History: Back Surgery, Hernia Repair Additional Past Surgical History / Comment(s): COLONOSCOPY Past Anesthesia/Blood Transfusion Reactions: No Reported Reaction Past Psychological History: Anxiety, Depression Smoking Status: Former smoker Past Alcohol Use History: None Reported Additional Past Alcohol Use History / Comment(s): QUIT SMOKING 2012, SMOKED 1 PPD Past Drug Use History: None Reported - Past Family History Mother Family Medical History: Cancer Brother(s) Family Medical History: Cancer Medications and Allergies Home Medications Medication Instructions Recorded Confirmed Type Dipyridamole-Aspirin 200-25 mg 1 cap PO BID 04/27/14 01/02/19 History [Aggrenox 25MG -200MG] Lisinopril-Hctz 10-12.5 mg 1 tab PO DAILY 04/27/14 01/02/19 History [Zestoretic 10-12.5] rOPINIRole HCL [Requip] 5 mg PO BID 07/25/18 01/02/19 History Pravastatin Sodium 80 mg PO HS 07/27/18 01/02/19 History Albuterol Inhaler [Ventolin Hfa 1 - 2 puff INHALATION RT-Q6H PRN 01/02/19 0 01/02/19 History Inhaler] Budesonide-Formot 160-4.5 Mcg 2 puff INHALATION BID 01/02/19 01/02/19 History [Symbicort 160-4.5 Mcg Inhaler] Budesonide-Formot 160-4.5 Mcg 2 puff INHALATION DAILY 01/02/19 01/02/19 History [Symbicort 160-4.5 Mcg Inhaler] Calcium Carbonate [Tums] 500 mg PO DIRECTED PRN 01/02/19 01/02/19 History Ibuprofen [Advil] 400 mg PO Q8HR PRN 01/02/19 01/02/19 History Tiotropium 18 Mcg/Puff [Spiriva] 1 puff INHALATION BID 01/02/19 01/02/19 History Allergies Allergy/AdvReac Type Severity Reaction Status Date / Time No Known Allergies Allergy Verified 01/02/19 15:03
[~2019-01-04 10:19] MED LIST: LACTATED RINGERS 1,000 ML IV SCH
[2019-01-04 11:06] VITALS: TEMP 97
[2019-01-04] MEDS ORDERED: LIDOCAINE 1% 20 ML VIAL (10MG/ML) FOR IV START INTRADERMA ONE (11:10)
[2019-01-04] MEDS ORDERED: PROPOFOL 10 MG/ML 20 ML VIAL IV ONE (11:41)
--- NOTE | 2019-01-04 11:56 | P.PCN ---
Date of Procedure: 01/04/19 Description of Procedure: PREOPERATIVE DIAGNOSIS: History of multiple transient ischemic attacks Ischemic cardiomyopathy Moderate to severe chronic obstructive pulmonary disease Chronic anticoagulant therapy Dysphagia Gastroesophageal reflux disease. POSTOPERATIVE DIAGNOSIS: History of multiple transient ischemic attacks Ischemic cardiomyopathy Moderate to severe chronic obstructive pulmonary disease Chronic anticoagulant therapy Dysphagia Gastroesophageal reflux disease. Diaphragmatic hiatal hernia Erosive esophagitis OPERATION: Esophagogastroduodenoscopy with biopsies along antrum. SURGEON: Marva Blair MD ANESTHESIA: MAC. INDICATIONS: The patient is a 73-year-old male who presents with a history of reflux disease. Benefits and risks of the procedure were described. Informed consent was obtained. DESCRIPTION: The patient was brought into the endoscopy suite and laid in the left lateral decubitus position. An Olympus gastroscope was passed along the posterior oropharynx down to the distal esophagus where the squamocolumnar junction was encountered at 40 cm from the incisors. Moderate resistance was identified along the proximal esophagus consistent with underlying esophageal dysmotility. The stomach was entered and no bile reflux was found. Additional findings are listed below. Biopsies with cold forceps were obtained of the antrum. The first through third portion of the duodenum was examined and unremarkable. Retroflexion of the scope confirmed Hill grade 3 lower esophageal valve. The squamocolumnar junction demonstrated LA grade B erosive esophagitis. The stomach was desufflated. The patient tolerated the procedure well. FINDINGS: Squamocolumnar junction 40 cm from the incisors. Diaphragmatic hiatus at 45 cm. Hiatal hernia, 5 cm Hill grade 3 lower esophageal valve. LA grade B erosive esophagitis. No active duodenitis. Chronic gastritis Esophageal dysmotility, presbyesophagus RECOMMENDATIONS: Upper endoscopy as needed. Recommend CT chest to delineate paraesophageal hiatal hernia Recommend swallow evaluation
[2019-01-04 12:33] VITALS: RESP 16
--- NOTE | 2019-01-04 12:37 | P.PCN ---
Date of Procedure: 01/04/19 Description of Procedure: PREOPERATIVE DIAGNOSIS: Personal history of high-risk colon polyps History of multiple transient ischemic attacks Ischemic cardiomyopathy Moderate to severe chronic obstructive pulmonary disease oxygen dependent Chronic anticoagulant therapy POSTOPERATIVE DIAGNOSIS: Personal history of high-risk colon polyps History of multiple transient ischemic attacks Ischemic cardiomyopathy Moderate to severe chronic obstructive pulmonary disease oxygen dependent Chronic anticoagulant therapy Large sigmoid diverticulosis OPERATION: Colonoscopy to the ileocecal valve and appendiceal orifice. Colonoscopy with multiple hot snare polypectomies Colonoscopy with ablation of tumors cecum, and hepatic flexure. SURGEON: Marva Blair MD. ANESTHESIA: MAC. INDICATIONS: The patient is a 73-year-old female who presents for colonoscopy screening. Last colonoscopy was 4 years ago with multiple high-risk polyps identified. Benefits and risks were described and informed consent was obtained. DESCRIPTION OF PROCEDURE: The patient had undergone Gatorade, MiraLAX and Dulcolax prep. He had been brought into the operating room and laid in the left lateral decubitus position. After adequate intravenous sedation, the rectum was examined with 2% lidocaine jelly. The prostate was smooth and without abnormality. No external hemorrhoids were encountered. The rectal tone was within normal limits. No lesions were palpated in the rectal vault. An Olympus colonoscope was advanced until the ileocecal valve and appendiceal orifice were clearly viewed. The prep was fair with semisolid stool and liquid stool identified. Large sigmoid diverticulosis was encountered. Multiple colonic polyps were addressed with ablation or snare polypectomy. No evidence of focal colitis was found. Retroflexion of the scope demonstrated grade 1 internal hemorrhoids without active bleeding or inflammation. The colon was desufflated. The patient had tolerated the procedure well. Withdrawal time was over 6 minutes. FINDINGS: [place] preparation quality scale 3 (1-5), fair with semisolid stool and liquid stool identified Internal hemorrhoids, grade 1 No external hemorrhoids No arteriovenous malformations. No focal colitis. Severe large sigmoid diverticulosis Removal of 10 polyps: - Snare polypectomy 10 cm from the anal verge, 8 mm tubulovillous adenoma polyp, rectal polyp - Snare polypectomy proximal transverse colon, 8 mm flat villous adenoma polyp. - Snare polypectomy ascending colon, 6 mm flat villous adenoma polyp. - Snare polypectomy cecum x 2, 4 and 5 mm polyp. - Snare polypectomy at hepatic flexure 3, 7-mm, 5-mm, and 8-mm polyp. - Ablation of polyp at cecum, 3 mm polyp. - Ablation of polyp at hepatic flexure, 3 mm polyp. RECOMMENDATIONS: Given severity of tubular adenomas, recommend repeat colonoscopy year, 2019 Plan - Discharge Summary New Discharge Prescriptions: No Action Lisinopril-Hctz 10-12.5 mg [Zestoretic 10-12.5] 1 tab PO DAILY Dipyridamole-Aspirin 200-25 mg [Aggrenox 25MG -200MG] 1 cap PO BID rOPINIRole HCL [Requip] 5 mg PO BID Pravastatin Sodium 80 mg PO HS Budesonide-Formot 160-4.5 Mcg [Symbicort 160-4.5 Mcg Inhaler] 2 puff INHALATION DAILY Tiotropium 18 Mcg/Puff [Spiriva] 1 puff INHALATION BID Albuterol Inhaler [Ventolin Hfa Inhaler] 1 - 2 puff INHALATION RT-Q6H PRN PRN Reason: Shortness Of Breath Budesonide-Formot 160-4.5 Mcg [Symbicort 160-4.5 Mcg Inhaler] 2 puff INHALA TION BID Ibuprofen [Advil] 400 mg PO Q8HR PRN PRN Reason: Pain Calcium Carbonate [Tums] 500 mg PO DIRECTED PRN PRN Reason: Heartburn Discharge Medication List Dipyridamole-Aspirin 200-25 mg [Aggrenox 25MG -200MG] 1 cap PO BID 04/27/14 [History] Lisinopril-Hctz 10-12.5 mg [Zestoretic 10-12.5] 1 tab PO DAILY 04/27/14 [History] rOPINIRole HCL [Requip] 5 mg PO BID 07/25/18 [History] Pravastatin Sodium 80 mg PO HS 07/27/18 [History] Albuterol Inhaler [Ventolin Hfa Inhaler] 1 - 2 puff INHALATION RT-Q6H PRN 01/02/19 [History] Budesonide-Formot 160-4.5 Mcg [Symbicort 160-4.5 Mcg Inhaler] 2 puff INHALATION BID 01/02/19 [History] Budesonide-Formot 160-4.5 Mcg [Symbicort 160-4.5 Mcg Inhaler] 2 puff INHALATION DAILY 01/02/19 [History] Calcium Carbonate [Tums] 500 mg PO DIRECTED PRN 01/02/19 [History] Ibuprofen [Advil] 400 mg PO Q8HR PRN 01/02/19 [History] Tiotropium 18 Mcg/Puff [Spiriva] 1 puff INHALATION BID 01/02/19 [History] Follow up Appointment(s)/Referral(s): Marva Blair MD [STAFF PHYSICIAN] - 01/24/19 (MARLETTE) Patient Instructions/Handouts: Diverticulosis (DC), Colorectal Polyps (GEN), Diverticulosis Diet (GEN) Activity/Diet/Wound Care/Special Instructions: Repeat colonoscopy 2 years, 2020. Start blood thinner on January 06 Discharge Disposition: HOME SELF-CARE
[2019-01-04 12:53] VITALS: BP 129/84; PULSE 52
== END 2019-01-04 13:18 | disposition home or self-care (01) ==
LOC: ORWHC2ENDO 10:19
PROVIDERS: ATTEND Surgery Plastic and Reconstructive Surgery
DX: Z12.11 Encounter for screening for malignant neoplasm of colon (principal); D12.0 Benign neoplasm of cecum; D12.3 Benign neoplasm of transverse colon; K29.50 Unspecified chronic gastritis without bleeding; I25.5 Ischemic cardiomyopathy; J44.9 Chronic obstructive pulmonary disease, unspecified; K22.10 Ulcer of esophagus without bleeding; K21.0 Gastro-esophageal reflux disease with esophagitis; K44.9 Diaphragmatic hernia without obstruction or gangrene; K57.30 Diverticulosis of large intestine without perforation or abscess without bleeding; K64.0 First degree hemorrhoids; Z79.82 Long term (current) use of aspirin; Z86.010 Personal history of colon polyps; Z86.73 Personal history of transient ischemic attack (TIA), and cerebral infarction without residual deficits; Z99.81 Dependence on supplemental oxygen; J96.11 Chronic respiratory failure with hypoxia; Z87.891 Personal history of nicotine dependence; Z79.51 Long term (current) use of inhaled steroids; Z79.899 Other long term (current) drug therapy
CPT/HCPCS: 88305; 45385; 43239; J2704

== ENCOUNTER 2019-04-03 10:52 | Observation (INO) | payer MEDICARE ==
[2019-04-03] MEDS ORDERED: IPRATROPIUM-ALBUTEROL 3 ML NEB INHALATION STA (11:14)
[2019-04-03] MEDS ORDERED: methylPREDNISolone SOD SUCCI 125 MG/2 ML VIAL IV STA (11:14)
[2019-04-03] MEDS ORDERED: PANTOPRAZOLE 40 MG/10 ML VIAL IVP STA (11:16)
--- NOTE | 2019-04-03 11:17 | ED ---
General Adult HPI - General Chief complaint: Recheck/Abnormal Lab/Rx Stated complaint: hemoptysis Time Seen by Provider: 04/03/19 11:05 Source: patient, family, RN notes reviewed Mode of arrival: wheelchair Limitations: no limitations - History of Present Illness Initial comments: Patient is a pleasant 74-year-old male presenting to the emergency Department with episode of bleeding. Patient states she does have bad lung disease and this has been acting up on him lately. Patient has known history of COPD and asbestosis as well as black mold exposure. Patient was having a coughing episode. During this patient belched and then noticed he spit out some blood. Patient is unclear if the blood came from a coughing episode or belching. No history of similar symptoms previously. Patient has not had an episode again since that time. Episode occurred around 9 AM this morning. Patient does still feel short of breath. Patient is on 6 L of oxygen at home. Patient was placed on amoxicillin several days ago by his primary care physician. - Related Data Home Medications Medication Instructions Recorded Confirmed Dipyridamole-Aspirin 200-25 mg 1 cap PO BID 04/27/14 01/02/19 [Aggrenox 25MG -200MG] Lisinopril-Hctz 10-12.5 mg 1 tab PO DAILY 04/27/14 01/02/19 [Zestoretic 10-12.5] rOPINIRole HCL [Requip] 5 mg PO BID 07/25/18 01/02/19 Pravastatin Sodium 80 mg PO HS 07/27/18 01/02/19 Albuterol Inhaler [Ventolin Hfa 1 - 2 puff INHALATION RT-Q6H PRN 01/02/19 01/02/19 Inhaler] Budesonide-Formot 160-4.5 Mcg 2 puff INHALATION BID 01/02/19 01/02/19 [Symbicort 160-4.5 Mcg Inhaler] Budesonide-Formot 160-4.5 Mcg 2 puff INHALATION DAILY 01/02/19 01/02/19 [Symbicort 160-4.5 Mcg Inhaler] Calcium Carbonate [Tums] 500 mg PO DIRECTED PRN 01/02/19 01/02/19 Ibuprofen [Advil] 400 mg PO Q8HR PRN 01/02/19 01/02/19 Tiotropium 18 Mcg/Puff [Spiriva] 1 puff INHALATION BID 01/02/19 01/02/19 Allergies Allergy/AdvReac Type Severity Reaction Status Date / Time No Known Allergies Allergy Verified 04/03/19 10:54 Review of Systems ROS Statement: Those systems with pertinent positive or pertinent negative responses have been documented in the HPI. ROS Other: All systems not noted in ROS Statement are negative. Constitutional: Denies: fever Eyes: Denies: eye pain ENT: Denies: ear pain Respiratory: Reports: as per HPI, cough, dyspnea Cardiovascular: Denies: chest pain Endocrine: Reports: fatigue Gastrointestinal: Reports: as per HPI. Denies: abdominal pain, nausea, vomiting Genitourinary: Denies: dysuria Musculoskeletal: Denies: back pain Skin: Denies: rash Neurological: Denies: weakness Past Medical History Past Medical History: COPD, CVA/TIA, GERD/Reflux, Hyperlipidemia, Hypertension, Pneumonia Additional Past Medical History / Comment(s): Hx of CVA's and TIA's., chronic hypoxic respiratory failure, AAA, DDD WITH BACK PAIN ., HX OF STOMACH ULCER. , ASBESTOSIS, WEARS OXYGEN AT 3.5-5 LITERS. STATES FOLLOWING WITH DR HILLIARD FOR PROSTATE., STATES STOMACH PAIN AFTER TAKING MEDS OR WITH COFFEE IN AM. History of Any Multi-Drug Resistant Organisms: None Reported Past Surgical History: Back Surgery, Hernia Repair Additional Past Surgical History / Comment(s): COLONOSCOPY Past Anesthesia/Blood Transfusion Reactions: No Reported Reaction Past Psychological History: Anxiety, Depression Smoking Status: Former smoker Past Alcohol Use History: None Reported Past Drug Use History: None Reported - Past Family History Mother Family Medical History: Cancer Brother(s) Family Medical History: Cancer General Exam Limitations: no limitations General appearance: alert, in no apparent distress Head exam: Present: atraumatic Eye exam: Present: normal appearance, PERRL ENT exam: Present: normal oropharynx Neck exam: Present: normal inspection Respiratory exam: Present: wheezes, decreased breath sounds Cardiovascular Exam: Present: regular rate, normal rhythm GI/Abdominal exam: Present: soft, normal bowel sounds. Absent: distended, tenderness, guarding, rebound, rigid, pulsatile mass Extremities exam: Present: normal inspection Neurological exam: Present: alert Psychiatric exam: Present: normal affect, normal mood Skin exam: Present: normal color Course Vital Signs 0704/03/19 04/03/19 10:54 11:49 12:00 Temperature 98.3 F Pulse Rate 72 98 92 Respiratory 18 Rate Blood Pressure 101/64 O2 Sat by Pulse 95 Oximetry Medical Decision Making - Medical Decision Making Patient reevaluated and resting comfortably in bed. Patient and family updated on results and plan. Case was discussed in detail with Dr. Alvarenga, covering for Dr. Morrell, who admits for Dr. Price and will admit. Consults will place with Dr. Mccall and Dr. Simeon who patient has previously seen. Cause of bleeding is felt to likely be upper GI hemorrhage secondary to BUN/ creatinine ratio wh ich is new compared to old labs. - Lab Data Result diagrams: 04/03/19 11:25 04/03/19 11:25 Lab Results 04/03/19 04/03/19 04/03/19 Range/Units 11:25 11:25 11:25 WBC 10.6 (3.8-10.6) k/uL RBC 4.14 L (4.30-5.90) m/uL Hgb 12.4 L (13.0-17.5) gm/dL Hct 38.5 L (39.0-53.0) % MCV 93.1 (80.0-100.0) fL MCH 30.0 (25.0-35.0) pg MCHC 32.2 (31.0-37.0) g/dL RDW 15.0 (11.5-15.5) % Plt Count 238 (150-450) k/uL Neutrophils % 86 % Lymphocytes % 6 % Monocytes % 5 % Eosinophils % 1 % Basophils % 1 % Neutrophils # 9.1 H (1.3-7.7) k/uL Lymphocytes # 0.7 L (1.0-4.8) k/uL Monocytes # 0.6 (0-1.0) k/uL Eosinophils # 0.1 (0-0.7) k/uL Basophils # 0.1 (0-0.2) k/uL PT 10.5 (9.0-12.0) sec INR 1.0 (<1.2) APTT 24.2 (22.0-30.0) sec Sodium 141 (137-145) mmol/L Potassium 4.5 (3.5-5.1) mmol/L Chloride 107 (98-107) mmol/L Carbon Dioxide 30 (22-30) mmol/L Anion Gap 4 mmol/L BUN 47 H (9-20) mg/dL Creatinine 0.90 (0.66-1.25) mg/dL Est GFR (CKD-EPI)AfAm >90 (>60 ml/min/1.73 sqM) Est GFR (CKD-EPI)NonAf 83 (>60 ml/min/1.73 sqM) Glucose 97 (74-99) mg/dL Calcium 8.6 (8.4-10.2) mg/dL Total Bilirubin 0.4 (0.2-1.3) mg/dL AST 21 (17-59) U/L ALT 24 (21-72) U/L Alkaline Phosphatase 59 (38-126) U/L Total Protein 5.2 L (6.3-8.2) g/dL Albumin 3.0 L (3.5-5.0) g/dL - Radiology Data Radiology results: image reviewed (Chest x-ray shows interstitial lung disease.) Disposition Clinical Impression: Acute exacerbation of chronic obstructive airways disease, Upper GI hemorrhage Disposition: ADMITTED IP TO THIS HOSP Is patient prescribed a controlled substance at d/c from ED?: No Referrals: Luis Price MD [Primary Care Provider] - 1-2 days Decision Time: 13:04
--- NOTE | 2019-04-03 11:43 | XR ---
EXAMINATION TYPE: XR chest 2V DATE OF EXAM: 04/03/2019 COMPARISON: Prior chest x-ray 07/27/2018 HISTORY: Difficulty breathing, coughing up blood TECHNIQUE: Frontal and lateral views of the chest are obtained. FINDINGS: Bilateral interstitial prominence noted. No evident pneumothorax or pleural effusion. Aort a is dense. Heart size is stable. There is an underlying scoliosis. IMPRESSION: Interstitial lung disease.
[2019-04-03 11:49] LABS: Basophils # (A) 0.1 k/uL (0-0.2); Basophils % (A) 1 %; Eosinophils # (A) 0.1 k/uL (0-0.7); Eosinophils % (A) 1 %; HCT 38.5 % (39.0-53.0); HGB 12.4 gm/dL (13.0-17.5); Lymphocytes # (A) 0.7 k/uL (1.0-4.8); Lymphocytes % (A) 6 %; MCHC 32.2 g/dL (31.0-37.0); MCV 93.1 fL (80.0-100.0); Mean Platelet Volume 7.4; Monocytes # (A) 0.6 k/uL (0-1.0); Monocytes % (A) 5 %; Neutrophils # (A) 9.1 k/uL (1.3-7.7); Neutrophils % (A) 86 %; Platelet Count 238 k/uL (150-450); RBC 4.14 m/uL (4.30-5.90); WBC 10.6 k/uL (3.8-10.6)
[2019-04-03 11:50] LABS: ALT 24 U/L (21-72); AST 21 U/L (17-59); African American GFR (CKD) >90 (>60 ml/min/1.73 sqM); Alkaline Phosphatase 59 U/L (38-126); Anion Gap 4 mmol/L; Blood Urea Nitrogen 47 mg/dL (9-20); Calcium 8.6 mg/dL (8.4-10.2); Carbon Dioxide 30 mmol/L (22-30); Chloride 107 mmol/L (98-107); Glucose 97 mg/dL (74-99); Potassium 4.5 mmol/L (3.5-5.1); Sodium 141 mmol/L (137-145); Total Bilirubin 0.4 mg/dL (0.2-1.3); Total Protein 5.2 g/dL (6.3-8.2)
[2019-04-03 12:17] LABS: Partial Thromboplastin Time 24.2 sec (22.0-30.0); Prothrombin Time 10.5 sec (9.0-12.0)
[2019-04-03] MEDS ORDERED: NALOXONE 0.4 MG/ML 1 ML VIAL IV PRN (13:04)
[2019-04-03] MEDS ORDERED: IPRATROPIUM-ALBUTEROL 3 ML NEB INHALATION PRN (13:04)
[2019-04-03] MEDS: SODIUM CHLORIDE 0.9% 1,000 ML IV SCH ×2 (13:34→20:22)
[2019-04-03] MEDS: IPRATROPIUM-ALBUTEROL 3 ML NEB INHALATION SCH ×2 (15:24→19:40)
[2019-04-03] MEDS ORDERED: [UNRECOGNIZED DRUG - OTHER] PO PRN (15:32)
[2019-04-03] MEDS ORDERED: SINUS PO PRN (15:32)
[2019-04-03] MEDS ORDERED: LIDOCAINE VISCOUS 2% 15 ML CUP MUCOUS MEM PRN (15:32)
[2019-04-03] MEDS ORDERED: FLU PO PRN (15:32)
[2019-04-03] MEDS ORDERED: TEMAZEPAM 15 MG CAP PO PRN (15:34)
[2019-04-03] MEDS ORDERED: ACETAMINOPHEN TAB 500 MG TAB PO PRN (15:34)
[2019-04-03] MEDS ORDERED: ALPRAZolam 0.25 MG TAB PO PRN (15:34)
[2019-04-03] MEDS ORDERED: HYDROmorphone 0.5 MG/0.5 ML SYRINGE IVP PRN (15:35)
[2019-04-03] MEDS ORDERED: HYDROcodone/APAP 5-325MG 1 EACH TAB PO PRN (15:35)
[2019-04-03] MEDS: CLOTRIMAZOLE TROCHE 10 MG TROCHE MUCOUS MEM SCH ×3 (15:54→23:58)
--- NOTE | 2019-04-03 16:26 | HP ---
HISTORY AND PHYSICAL CHIEF COMPLAINT: Hemoptysis and hematemesis. HISTORY OF PRESENT ILLNESS: This 74-year-old gentleman with a past medical history of multiple medical problems including COPD, CVA, TIA, GERD, hypertension, hyperlipidemia, history of pneumonia, being followed by Dr. Price in the outpatient setting, not feeling well for the past several days. Patient had increased shortness of breath and cough. This morning, the patient apparently had found blood in the sputum. The patient was not sure if the blood came after belching or cough and the patient came to [facility] and admitted for further evaluation and treatment. Hemoglobin found to be 12.4. There is no history of fever, rigors. No history of headache, loss of consciousness or seizures. A chest x-ray done in the emergency room also showed interstitial lung disease. There is no history of fever, rigors, chills at this time. PAST MEDICAL HISTORY: History of COPD, GERD, hypertension, hyperlipidemia, history of pneumonia, CVA, TIA, history of back surgery, history of anxiety, depression. MEDICATIONS: Prior to admission include home medications are: 1. Coricidin. 2. Clotrimazole 10 mg. 3. Plavix 75 mg. 4. Vitamin D3 1000 daily. 5. Vitamin C 500 mg p.o. 6. Requip 5 mg p.o. b.i.d. 7. Pravastatin 80 mg q.h.s. 8. Striverdi 2 puffs daily. 9. Asmanex 1 puff q.h.s. 10.Zestoretic 10/12.5 mg p.o. daily. 11.Xylocaine viscus 10 mL q.2h p.r.n. 12.Amoxil 500 mg p.o. b.i.d. ALLERGIES: None. FAMILY HISTORY: History of cancer in the family. SOCIAL HISTORY: Previous history of smoking. No history of current smoking, no history of alcohol intake. REVIEW OF SYSTEMS: ENT: No diminished vision. No diminished hearing. CARDIOVASCULAR: No angina or palpitations. RESPIRATION: As mentioned earlier. GI as mentioned earlier. no dysuria or hematuria. CENTRAL NERVOUS SYSTEM: No numbness or weakness. ALLERGY/IMMUNOLOGY: No asthma or hayfever. MUSCULOSKELETAL as mentioned earlier. HEMATOLOGY/ONCOLOGY: No history of anemia. ENDOCRINE: No history of diabetes or hypothyroidism. CONSTITUTIONAL: As mentioned earlier. DERMATOLOGY negative. RHEUMATOLOGY: Negative. PSYCHIATRY as mentioned earlier. PHYSICAL EXAMINATION: Alert and oriented times three. Pulse 90, blood pressure 98/64, respiration 18, temperature 98.2, pulse ox 94% on 5 L. HEENT: Conjunctivae normal. Oral mucosa moist. Neck is no jugular venous distention. No carotid bruit. No lymph node enlargement. CARDIOVASCULAR system: S1, S2 muffled. RESPIRATORY: Breath sounds diminished in the bases. A few scattered rhonchi and crackles. Expiratory wheezing also present. ABDOMEN: Soft, obese. Mild diffuse discomfort. No guarding. No rigidity. No mass palpable. LEGS: No edema. No swelling. NERVOUS SYSTEM: Higher functions as mentioned earlier. Moves all 4 limbs. No focal motor or sensory deficits. LYMPHATICS: No lymph nodes palpable in the neck, axillae or groin. SKIN: No ulcer, rash or bleeding. JOINTS: No active deforming arthropathy. LABS: WBC 10.3, hemoglobin 12.4, sodium 141, potassium 4.5, albumin is 3. ASSESSMENT: 1. Hemoptysis/hematemesis for evaluation. 2. Chronic obstructive pulmonary disease acute exacerbation with acute purulent tracheobronchitis. 3. Rule out peptic ulcer disease. 4. Anemia possibly acute blood-loss anemia. 5. History of cerebrovascular accident/transient ischemic attack. 6. Gastroesophageal reflux disease. 7. Hypertension. 8. Hyperlipidemia. 9. History of pneumonia. 10.History of chronic hypoxic respiratory failure. 11.History of abdominal aortic aneurysm. 12.History of stomach ulcer. 13.History of asbestosis. 14.Chronic hypoxic respiratory failure on 3.5 L of oxygen. 15.History of back pain, degenerative joint disease. 16.History of anxiety, depression. 17.Remote history of nicotine dependence. RECOMMENDATIONS AND DISCUSSION: In this 74-year-old gentleman who presented with multiple complex medical issues, we will monitor the patient closely, continue the current medications, management and symptomatic treatment. We will continue with bronchodilators. Continue with empiric antibiotics and steroids. Monitor blood sugars closely and also recommend pulmonary and gastroenterology evaluations. The prognosis guarded because of multiple complex medical issues. Further recommendations to follow. A copy of being forwarded to Dr. Prcie who is the primary care physician. MMODL / IJN: [id number] /
[2019-04-03] MEDS: methylPREDNISolone SOD SUCCI 125 MG/2 ML VIAL IV SCH ×2 (17:15→23:58)
[2019-04-03 18:46] LABS: Basophils % (A) 0 %; Eosinophils % (A) 0 %; HCT 35.1 % (39.0-53.0); Lymphocytes # (A) 0.3 k/uL (1.0-4.8); Lymphocytes % (A) 3 %; MCH 29.2 pg (25.0-35.0); MCHC 31.2 g/dL (31.0-37.0); MCV 93.4 fL (80.0-100.0); Mean Platelet Volume 6.9; Monocytes # (A) 0.1 k/uL (0-1.0); Monocytes % (A) 1 %; Neutrophils # (A) 7.6 k/uL (1.3-7.7); Neutrophils % (A) 95 %; Platelet Count 211 k/uL (150-450); RBC 3.76 m/uL (4.30-5.90); RDW 14.1 % (11.5-15.5)
[2019-04-03] MEDS: SYMBICORT 160-4.5 MCG INHALER INHALATION SCH (19:40)
[2019-04-03] MEDS ORDERED: MOMETASONE FUROATE INHALATION SCH (20:00)
[2019-04-03] MEDS: PANTOPRAZOLE 40 MG/10 ML VIAL IV SCH (20:21)
[2019-04-03] MEDS: rOPINIRole HCL 4 MG TABLET PO SCH (20:22)
[2019-04-03] MEDS ORDERED: PRAVASTATIN SODIUM 80 MG TAB PO SCH (21:00)
[2019-04-04 04:37] VITALS: RESP 18
[2019-04-04] MEDS: methylPREDNISolone SOD SUCCI 125 MG/2 ML VIAL IV SCH ×2 (06:17→11:42)
[2019-04-04] MEDS: CLOTRIMAZOLE TROCHE 10 MG TROCHE MUCOUS MEM SCH ×2 (06:18→11:42)
[2019-04-04] MEDS: IPRATROPIUM-ALBUTEROL 3 ML NEB INHALATION SCH ×2 (07:17→10:56)
[2019-04-04] MEDS: SYMBICORT 160-4.5 MCG INHALER INHALATION SCH (07:17)
[2019-04-04] MEDS: PANTOPRAZOLE 40 MG/10 ML VIAL IV SCH (07:54)
[2019-04-04] MEDS ORDERED: OLODATEROL HCL INHALATION SCH (08:00)
--- NOTE | 2019-04-04 08:04 | P.GSCN ---
History of Present Illness Consult date: 04/04/19 History of present illness: CHIEF COMPLAINT: Hematemesis HISTORY OF PRESENT ILLNESS: The patient is a 74 year old male who reported yesterday evening during beings and had felt gas cramps in the epigastrium. He coughed 3 times and had blood clots. He has a personal history of being on blood thinners including Aggrenox. He has history of a upper endoscopy [facility] January 2019 by me with the findings of gastritis. As a result of hematemesis was transferred to [facility] from [facility]. He has history of multiple comorbidities including severe obstructive pulmonary disease, oxygen dependent, ischemic cardiomyopathy, history of strokes. Since admission, abdominal pain and cramps has resolved. General surgery is consulted for further evaluation of hematemesis/upper GI bleed. PAST MEDICAL HISTORY: See list. PAST SURGICAL HISTORY: See list. MEDICATIONS: See list. ALLERGIES: See list. SOCIAL HISTORY: No illicit drug use FAMILY HISTORY: No reports of Crohn's disease or inflammatory bowel disease REVIEW OF ORGAN SYSTEMS: CONSTITUTIONAL: No fevers or chills. No recent weight loss. EYES: Denies any trouble with vision. No glasses. HEENT: No difficulties with hearing. No difficulty swallowing. RESPIRATORY: Past pneumonia. Oxygen dependent chronic obstructive pulmonary disease CARDIOVASCULAR: Past history of heart attacks. No recent chest pain. GASTROINTESTINAL: Denies fatty food intolerance. History of colonoscopy January 2019 with multiple high risk polyps and gastritis. Personal history of gastric ulcers. GENITOURINARY: Denies any blood in urine. Has increased urinary frequency. NEUROLOGICAL: Denies any numbness or tingling along the distal extremities. No seizure disorders or headaches. MUSCULOSKELETAL: Has back pain, stiffness or joint arthritis. SKIN: No current skin cancer. No rash. PSYCHIATRIC: Denies current depression or suicidal thoughts. ENDOCRINE: Denies current thyroid disorders. Denies any blood sugar glucose intolerance. HEME/LYMPHATIC: Denies any lumps and bumps around the neck. No recent deep venous thrombosis. ALLERGY/IMMUNOLOGY: No immunoglobulin therapy. No immune deficiencies. BREAST: Denies current breast lumps, pain or nipple discharge. PHYSICAL EXAM: VITALS: Reviewed CONSTITUTIONAL: Well developed and in no acute distress. EYES: Conjuctivae without sclera icterus. Pupils are equally round and reactive to light. Extraocular movements grossly intact. HEAD, EARS, NOSE, THROAT: Moist buccal mucosa. Head is atraumatic, normocephalic. Hears conversational speech. No nasal drainage. NECK: Supple. No JV distention. No thyroidomegaly. RESPIRATORY: Non-labored respirations and equal bilateral excursions. No gross wheezes. CARDIOVASCULAR: Irregular rate and rhythm. Extremities without moderate edema. Palpable 2+ radial pulses. ABDOMEN: No hepatomegaly. Soft. Non-tender. Nondistended. LYMPH: No neck lymphadenopathy. No axillary lymphadenopathy. MUSCULOSKELETAL: Gait within normal limits. Range of motion bilateral upper extremities within normal limits. Nail and fingers with good capillary refill. SKIN: Warm and well perfused with good skin turgor. NEUROLOGIC: Cranial nerves I through XII grossly intact. Sensation upper and extremities intact. No focal or lateralizing signs. PSYCH: Appropriate affect. Alert and oriented to person, place and time. Dis plays appropriate insight. CLINCAL LABS: Reviewed. Hemoglobin dropped 12.4-11.1 MEDICAL TEST: Endoscopy reviewed from May 2019 IMAGING: Independently reviewed showing no free air or pneumoperitoneum ASSESSMENT: 1. Hematemesis 2. History of upper GI bleed/gastric ulcers PLAN: 1. Recommend proceeding with upper endoscopy. Patient has high risk with baseline high oxygen home requirement and COPD. Thank you for this kind consultation. Past Medical History Past Medical History: COPD, CVA/TIA, GERD/Reflux, Hyperlipidemia, Hypertension, Pneumonia Additional Past Medical History / Comment(s): Hx of CVA's and TIA's., chronic hypoxic respiratory failure, AAA, DDD WITH BACK PAIN ., HX OF STOMACH ULCER. , ASBESTOSIS, WEARS OXYGEN AT 3.5-5 LITERS. STATES FOLLOWING WITH DR HILLIARD FOR PROSTATE., STATES STOMACH PAIN AFTER TAKING MEDS OR WITH COFFEE IN AM. History of Any Multi-Drug Resistant Organisms: None Reported Past Surgical History: Back Surgery, Hernia Repair Additional Past Surgical History / Comment(s): COLONOSCOPY Past Anesthesia/Blood Transfusion Reactions: No Reported Reaction Past Psychological History: Anxiety, Depression Smoking Status: Former smoker Past Alcohol Use History: None Reported Additional Past Alcohol Use History / Comment(s): QUIT SMOKING 2012, SMOKED 1 PPD Past Drug Use History: None Reported - Past Family History Mother Family Medical History: Cancer Brother(s) Family Medical History: Cancer Medications and Allergies Home Medications Medication Instructions Recorded Confirmed Type Lisinopril-Hctz 10-12.5 mg 1 tab PO DAILY 04/27/14 04/03/19 History [Zestoretic 10-12.5] rOPINIRole HCL [Requip] 5 mg PO BID 07/25/18 04/03/19 History Pravastatin Sodium 80 mg PO HS 07/27/18 04/03/19 History Amoxicillin 500 mg PO Q12HR 04/03/19 04/03/19 History Ascorbic Acid [Vitamin C] 500 mg PO DAILY 04/03/19 04/03/19 History Cholecalciferol [Vitamin D3 (25 1,000 unit PO DAILY 04/03/19 04/03/19 History Mcg = 1000 Iu)] Clopidogrel Bisulfate [Plavix] 75 mg PO DAILY 04/03/19 04/03/19 History Clotrimazole Christiana [Mycelex 10 mg MUCOUS MEM 5XD 04/03/19 04/03/19 History Christiana] Coricidin Hpb Cold/Flu/Sinus 2 tab PO Q6H PRN 04/03/19 04/03/19 History Lidocaine Viscous 2% [Xylocaine 10 ml MUCOUS MEM Q2H PRN 04/03/19 04/03/19 History Viscous] Mometasone Furoate [Asmanex] 1 puff INHALATION RT-HS 04/03/19 04/03/19 History Olodaterol HCl [Striverdi Respimat] 2 puff INHALATION RT-DAILY 04/03/19 04/03/19 History Allergies Allergy/AdvReac Type Severity Reaction Status Date / Time No Known Allergies Allergy Verified 04/03/19 13:31 Surgical - Exam Vital Signs Temp Pulse Resp BP Pulse Ox 98.3 F 72 18 101/64 95 04/03/19 10:54 04/03/19 10:54 04/03/19 10:54 04/03/19 10:54 04/03/19 10:54 Results - Labs 04/03/19 18:24 04/03/19 11:25 Abnormal Lab Results - Last 24 Hours (Table) 04/03/19 04/03/19 04/03/19 Range/Units 11:25 11:25 18:24 RBC 4.14 L 3.76 L (4.30-5.90) m/uL Hgb 12.4 L 11.0 L (13.0-17.5) gm/dL Hct 38.5 L 35.1 L (39.0-53.0) % Neutrophils # 9.1 H (1.3-7.7) k/uL Lymphocytes # 0.7 L 0.3 L (1.0-4.8) k/uL BUN 47 H (9-20) mg/dL Total Protein 5.2 L (6.3-8.2) g/dL Albumin 3.0 L (3.5-5.0) g/dL Diabetes panel 04/03/19 Range/Units 11:25 Sodium 141 (137-145) mmol/L Potassium 4.5 (3.5-5.1) mmol/L Chloride 107 (98-107) mmol/L Carbon Dioxide 30 (22-30) mmol/L BUN 47 H (9-20) mg/dL Creatinine 0.90 (0.66-1.25) mg/dL Glucose 97 (74-99) mg/dL Calcium 8.6 (8.4-10.2) mg/dL AST 21 (17-59) U/L ALT 24 (21-72) U/L Alkaline Phosphatase 59 (38-126) U/L Total Protein 5.2 L (6.3-8.2) g/dL Albumin 3.0 L (3.5-5.0) g/dL Calcium panel 04/03/19 Range/Units 11:25 Calcium 8.6 (8.4-10.2) mg/dL Albumin 3.0 L (3.5-5.0) g/dL Pituitary panel 04/03/19 Range/Units 11:25 Sodium 141 (137-145) mmol/L Potassium 4.5 (3.5-5.1) mmol/L Chloride 107 (98-107) mmol/L Carbon Dioxide 30 (22-30) mmol/L BUN 47 H (9-20) mg/dL Creatinine 0.90 (0.66-1.25) mg/dL Glucose 97 (74-99) mg/dL Calcium 8.6 (8.4-10.2) mg/dL Adrenal panel 04/03/19 Range/Units 11:25 Sodium 141 (137-145) mmol/L Potassium 4.5 (3.5-5.1) mmol/L Chloride 107 (98-107) mmol/L Carbon Dioxide 30 (22-30) mmol/L BUN 47 H (9-20) mg/dL Creatinine 0.90 (0.66-1.25) mg/dL Glucose 97 (74-99) mg/dL Calcium 8.6 (8.4-10.2) mg/dL Total Bilirubin 0.4 (0.2-1.3) mg/dL AST 21 (17-59) U/L ALT 24 (21-72) U/L Alkaline Phosphatase 59 (38-126) U/L Total Protein 5.2 L (6.3-8.2) g/dL Albumin 3.0 L (3.5-5.0) g/dL - Imaging Chest x-ray: report reviewed, image reviewed Assessment and Plan (1) Moderate COPD (chronic obstructive pulmonary disease) Current Visit: Yes Status: Acute Code(s): J44.9 - CHRONIC OBSTRUCTIVE PULMONARY DISEASE, UNSPECIFIED SNOMED Code(s): 698485363 (2) Antiplatelet or antithrombotic long-term use Current Visit: Yes Status: Acute Code(s): Z79.02 - VICE PRESIDENT OF TALENT MANAGEMENT (CURRENT) USE OF ANTITHROMBOTICS/ANTIPLATELETS SNOMED Code(s): 939540056 (3) History of stroke Current Visit: Yes Status: Acute Code(s): Z86.73 - PRSNL HX OF TIA (TIA), AND CEREB INFRC W/O RESID DEFICITS SNOMED Code(s): 372693686 (4) History of ischemic cardiomyopathy Current Visit: Yes Status: Acute Code(s): Z86.79 - PERSONAL HISTORY OF OTHER DISEASES OF THE CIRCULATORY SYSTEM SNOMED Code(s): 923526230 (5) Upper GI hemorrhage Current Visit: Yes Status: Acute Code(s): K92.2 - GASTROINTESTINAL HEMORRHAGE, UNSPECIFIED SNOMED Code(s): 12788400
[2019-04-04] MEDS ORDERED: PROPOFOL 10 MG/ML 20 ML VIAL IV ONE (08:41)
[2019-04-04] MEDS ORDERED: PHENYLEPHRINE-0.9% NACL SYG 1 MG/10 ML SYRINGE ONE (08:41)
[2019-04-04] MEDS ORDERED: IV FLUID CONTINUATION 200 ML IV ONE (08:49)
[2019-04-04] MEDS ORDERED: CHOLECALCIFEROL 1,000 UNIT TAB PO SCH (09:00)
[2019-04-04] MEDS ORDERED: LISINOPRIL-HCTZ 10-12.5 MG 1 EACH TAB PO SCH (09:00)
--- NOTE | 2019-04-04 09:02 | P.PCN ---
Date of Procedure: 04/04/19 Description of Procedure: PREOPERATIVE DIAGNOSIS: Hematemesis History of upper GI bleed History of gastric ulcers Chronic antiplatelet therapy Chronic anticoagulant therapy Severe obstructive pulmonary disease, oxygen dependent POSTOPERATIVE DIAGNOSIS: Hematemesis History of upper GI bleed History of gastric ulcers Chronic antiplatelet therapy Chronic anticoagulant therapy Severe obstructive pulmonary disease, oxygen dependent Duodenitis without bleeding Acute superficial gastric ulcer, gastric fundus, without active bleeding OPERATION: Esophagogastroduodenoscopy SURGEON: Marva Blair MD ANESTHESIA: MAC. INDICATIONS: The patient is a 74-year-old male who presents with hematemesis and history of gastric ulcers with multiple comorbidities. Benefits and risks of the procedure were described. Informed consent was obtained. DESCRIPTION: The patient was brought into the endoscopy suite and laid in the left lateral decubitus position. An Olympus gastroscope was passed along the posterior oropharynx down to the distal esophagus where the squamocolumnar junction was encountered at 40 cm from the incisors. The stomach was entered and no bile reflux was found. Additional findings are listed below. Biopsies with cold forceps were obtained of the antrum. The first through third portion of the duodenum was examined and unremarkable. Retroflexion of the scope confirmed Hill grade 2 lower esophageal valve. The squamocolumnar junction demonstrated LA grade A erosive esophagitis. The stomach was desufflated. The patient tolerated the procedure well. FINDINGS: Squamocolumnar junction 40 cm from the incisors. Diaphragmatic hiatus at 40 cm. Hill grade 2 lower esophageal valve. LA grade A erosive esophagitis. Duodenitis without bleeding Acute superficial 3-mm 3 gastric ulcers, gastric fundus, without active bleeding RECOMMENDATIONS: Upper endoscopy as needed. Recommend Carafate twice daily Ideally, hold antiplatelet therapy and anticoagulant therapy 1 week to resolve ulcers
[2019-04-04 10:04] VITALS: TEMP 97.4
--- NOTE | 2019-04-04 10:31 | P.CONS ---
History of Present Illness - Reason for Consult Consult date: 04/04/19 Hematemesis Requesting physician: Francisco Alvarenga - Chief Complaint Hematemesis - History of Present Illness 74-year-old male past medical history peptic ulcer disease chronic anticoagulant therapy admitted with acute hematemesis 3 recent EGD January 2019 findings of gastritis. Underlying history of ischemic cardiomyopathy CVA maintained on antiplatelet medications. EGD completed today by general surgery with findings of superficial gastric ulcer without active bleeding. Denies melena or hematochezia. Admission hemoglobin 12.4 decreased to 11. White count 8. Platelet 211. BUN 47. Creatinine 0.9. Review of Systems Constitutional: Denies fever, chills, sweats, weight gain, or loss. HEENT: Negative for migraines, blurred vision or loss, earaches, drainage, tinnitus, oral mucosal lesions, dysphagia, or odynophagia. Cardiac: Negative for chest pain, arrhythmias, or palpitation. Respiratory: Negative for shortness of breath, hemoptysis, cough, or sputum production. Gastrointestinal: See HPI for pertinent findings. Genitourinary: Negative for hematuria, urgency, frequency, polyuria, dysuria, or penile discharge. Musculoskeletal: Negative for muscle aches, swelling, arthritis, and arthralgias. Neurologic: Negative for stroke or TIA. Endocrine: Negative for thyroid problems. Skin: Negative for rash or itching. Psychiatric: Negative history for depression and anxiety Past Medical History Past Medical History: COPD, CVA/TIA, GERD/Reflux, Hyperlipidemia, Hypertension, Pneumonia Additional Past Medical History / Comment(s): Hx of CVA's and TIA's., chronic hypoxic respiratory failure, AAA, DDD WITH BACK PAIN ., HX OF STOMACH ULCER. , ASBESTOSIS, WEARS OXYGEN AT 3.5-5 LITERS. STATES FOLLOWING WITH DR HILLIARD FOR PROSTATE., STATES STOMACH PAIN AFTER TAKING MEDS OR WITH COFFEE IN AM. History of Any Multi-Drug Resistant Organisms: None Reported Past Surgical History: Back Surgery, Hernia Repair Additional Past Surgical History / Comment(s): COLONOSCOPY Past Anesthesia/Blood Transfusion Reactions: No Reported Reaction Past Psychological History: Anxiety, Depression Smoking Status: Former smoker Past Alcohol Use History: None Reported Additional Past Alcohol Use History / Comment(s): QUIT SMOKING 2012, SMOKED 1 PPD Past Drug Use History: None Reported - Past Family History Mother Family Medical History: Cancer Brother(s) Family Medical History: Cancer Medications and Allergies Home Medications Medication Instructions Recorded Confirmed Type Lisinopril-Hctz 10-12.5 mg 1 tab PO DAILY 04/27/14 04/03/19 History [Zestoretic 10-12.5] rOPINIRole HCL [Requip] 5 mg PO BID 07/25/18 04/03/19 History Pravastatin Sodium 80 mg PO HS 07/27/18 04/03/19 History Amoxicillin 500 mg PO Q12HR 04/03/19 04/03/19 History Ascorbic Acid [Vitamin C] 500 mg PO DAILY 04/03/19 04/03/19 History Cholecalciferol [Vitamin D3 (25 1,000 unit PO DAILY 04/03/19 04/03/19 History Mcg = 1000 Iu)] Clopidogrel Bisulfate [Plavix] 75 mg PO DAILY 04/03/19 04/03/19 History Clotrimazole Christiana [Mycelex 10 mg MUCOUS MEM 5XD 04/03/19 04/03/19 History Christiana] Coricidin Hpb Cold/Flu/Sinus 2 tab PO Q6H PRN 04/03/19 04/03/19 History Lidocaine Viscous 2% [Xylocaine 10 ml MUCOUS MEM Q2H PRN 04/03/19 04/03/19 History Viscous] Mometasone Furoate [Asmanex] 1 puff INHALATION RT-HS 04/03/19 04/03/19 History Olodaterol HCl [Striverdi Respimat] 2 puff INHALATION RT-DAILY 04/03/19 04/03/19 History Omeprazole 40 mg PO DAILY #30 capsule. 04/04/19 Rx Sucralfate [Carafate] 1 gm PO BID #30 tab 04/04/19 Rx Allergies Allergy/AdvReac Type Severity Reaction Status Date / Time No Known Allergies Allergy Verified 04/03/19 13:31 Physical Exam Vitals: Vital Signs Temp Pulse Pulse Resp BP BP Pulse Ox 04/04/19 07:34 74 04/04/19 07:20 70 99 04/04/19 04:36 97.6 F 67 18 113/60 100 04/03/19 21:49 98.4 F 85 22 122/72 98 04/03/19 20:09 72 04/03/19 19:58 92 04/03/19 19:43 89 04/03/19 15:36 93 04/03/19 15:24 90 04/03/19 15:11 18 04/03/19 14:10 98.2 F 72 18 98/65 95 04/03/19 13:30 73 20 92/56 99 04/03/19 13:12 72 20 101/58 100 04/03/19 12:00 92 04/03/19 11:49 98 04/03/19 10:54 98.3 F 72 18 101/64 95 Intake and Output 04/03/19 04/04/19 04/04/19 22:59 06:59 14:59 Other: # Voids 2 1 General appearance: The patient is alert, oriented, in no acute distress. HET: Head is normocephalic and atraumatic. Pupils are equal and reactive. Oropharynx is clear without lesions. Neck: Supple without lymphadenopathy. Trachea midline. Heart: S1 S2. Regular rate and rhythm. Lungs: No crackles or wheezes are heard. Abdomen: Soft, mild midepigastric tenderness, nondistended with bowel sounds. No peritoneal signs. No palpable organomegaly or masses. Extremities: Normal skin color and turgor. No cyanosis, rash, ulceration, clubbing, or edema. Radial and pedal pulses are 2/4 bilaterally. Neurological: No focal deficits. Strength and sensation are grossly intact. Results CBC & Chem 7: 04/03/19 18:24 04/03/19 11:25 Labs: Abnormal Lab Results - Last 24 Hours (Table) 04/03/19 04/03/19 04/03/19 Range/Units 11:25 11:25 18:24 RBC 4.14 L 3.76 L (4.30-5.90) m/uL Hgb 12.4 L 11.0 L (13.0-17.5) gm/dL Hct 38.5 L 35.1 L (39.0-53.0) % Neutrophils # 9.1 H (1.3-7.7) k/uL Lymphocytes # 0.7 L 0.3 L (1.0-4.8) k/uL BUN 47 H (9-20) mg/dL Total Protein 5.2 L (6.3-8.2) g/dL Albumin 3.0 L (3.5-5.0) g/dL Assessment and Plan (1) Hematemesis Narrative/Plan: Status post EGD superficial gastric ulcer not bleeding Current Visit: Yes Status: Acute Code(s): K92.0 - HEMATEMESIS SNOMED Code(s): 9627568 Plan: 1. Carafate twice daily. Protonix 40 mg twice daily. Antiplatelet on hold. Diet per surgery. Thank you for this kind referral and the opportunity to participate in the care of your patient. This consultation was discussed with Dr. Vaughn. The impression and plan of care have been directed as dictated.
[2019-04-04 10:34] LABS: Basophils % (A) 0 %; Eosinophils % (A) 0 %; HCT 31.8 % (39.0-53.0); HGB 10.2 gm/dL (13.0-17.5); Lymphocytes # (A) 0.4 k/uL (1.0-4.8); Lymphocytes % (A) 4 %; MCH 29.9 pg (25.0-35.0); MCV 93.4 fL (80.0-100.0); Mean Platelet Volume 7.3; Monocytes # (A) 0.2 k/uL (0-1.0); Monocytes % (A) 2 %; Neutrophils # (A) 9.1 k/uL (1.3-7.7); Neutrophils % (A) 94 %; Platelet Count 225 k/uL (150-450); RBC 3.41 m/uL (4.30-5.90); RDW 14.9 % (11.5-15.5); WBC 9.7 k/uL (3.8-10.6)
[2019-04-04 10:47] LABS: African American GFR (CKD) >90 (>60 ml/min/1.73 sqM); Anion Gap 7 mmol/L; Blood Urea Nitrogen 45 mg/dL (9-20); Calcium 8.5 mg/dL (8.4-10.2); Carbon Dioxide 26 mmol/L (22-30); Chloride 107 mmol/L (98-107); Glucose 132 mg/dL (74-99); Sodium 140 mmol/L (137-145)
[2019-04-04 10:49] VITALS: BP 123/57
[2019-04-04 11:12] VITALS: PULSE 84
[2019-04-04] MEDS: rOPINIRole HCL 4 MG TABLET PO SCH (11:43)
[2019-04-04] MEDS ORDERED: ALBUTEROL NEBULIZED 2.5 MG/3 ML INHALATION SCH (16:00)
--- NOTE | 2019-04-05 06:23 | DS ---
DISCHARGE SUMMARY DATE OF SERVICE: 04/04/2019 FINAL DIAGNOSES: 1. Hematemesis and upper gastrointestinal bleeding secondary to acute gastric ulcers. 2. Erosive esophagitis. 3. Chronic obstructive pulmonary disease acute exacerbation with acute purulent tracheobronchitis. 4. Possible acute blood loss anemia from above. 5. History of cerebrovascular accident, transient ischemic attack. 6. Gastroesophageal reflux disease. 7. Hypertension. 8. Hyperlipidemia. 9. History of pneumonia. 10.Chronic hypoxic respiratory failure. 11.History of abdominal aortic aneurysm. 12.History of stomach ulcer. 13.History of asbestosis. 14.History of chronic hypoxic respiratory failure on 3.5 L oxygen. 15.History of back pain, degenerative joint disease. 16.History of anxiety, depression. 17.Remote history of nicotine dependence. DISCHARGE DISPOSITION: The patient will be discharged in stable condition with guarded prognosis. Surgery cleared the patient for discharge. HISTORY OF PRESENT ILLNESS: This 74-year-old gentleman with a past medical history of multiple medical problems being followed by Dr. Price in the outpatient setting admitted with hematemesis and acute blood loss anemia. The patient was treated symptomatically. Dr. Blair performed endoscopy, with above mentioned results. Please refer to Dr. Blair's full report for further details. Otherwise, the hemoglobin is stable at 10.2 from 12.4. The patient being discharged in stable condition with guarded prognosis. On exam, vitals are stable. CARDIOVASCULAR: S1, S2 muffled. ABDOMEN: Soft. NERVOUS SYSTEM: No focal deficits. DISCHARGE ADVICE: 1. Diet is cardiac. 2. Activity limited until followup. 3. Follow up with Dr. Price in 2 to 3 days. 4. Follow up with Dr. Blair as recommended. 5. No NSAIDs. MEDICATIONS: 1. Asmanex q.h.s.. 2. Mycelex 10 mg mucous 5 times daily. 3. Pravastatin 80 mg q.h.s. 4. Requip 5 mg p.o. b.i.d. 5. Striverdi 2 puffs daily. 6. Vitamin D3, 1000 daily. 7. Lidocaine viscous. 8. Lisinopril hydrochlorothiazide 10/12.5 mg daily. 9. Carafate 1 gram p.o. b.i.d. 10.Omeprazole 40 mg p.o. daily. 11.Plavix 75 mg p.o. daily, resume in 1 week. 12.Tylenol 500 mg q.6 p.r.n. Once again, the patient will be discharged in a stable condition with guarded prognosis. STACIE / ADRIANNA: [id number] / MTDD
== END 2019-04-04 13:04 | disposition home or self-care (01) ==
LOC: EC 10:52 → 4MS4W 13:04
PROVIDERS: ADMIT Hospitalist; ATTEND Hospitalist
DX: K25.0 Acute gastric ulcer with hemorrhage (principal); J44.1 Chronic obstructive pulmonary disease with (acute) exacerbation; J44.0 Chronic obstructive pulmonary disease with (acute) lower respiratory infection; J20.9 Acute bronchitis, unspecified; K20.8 Other esophagitis; K29.80 Duodenitis without bleeding; Z99.81 Dependence on supplemental oxygen; K21.9 Gastro-esophageal reflux disease without esophagitis; I10 Essential (primary) hypertension; J61 Pneumoconiosis due to asbestos and other mineral fibers; E78.5 Hyperlipidemia, unspecified; J96.11 Chronic respiratory failure with hypoxia; D64.9 Anemia, unspecified; M54.9 Dorsalgia, unspecified; M19.90 Unspecified osteoarthritis, unspecified site; J84.9 Interstitial pulmonary disease, unspecified; I25.5 Ischemic cardiomyopathy; I71.4 Abdominal aortic aneurysm, without rupture; M47.9 Spondylosis, unspecified; F41.9 Anxiety disorder, unspecified; F32.9 Major depressive disorder, single episode, unspecified; Z79.01 Long term (current) use of anticoagulants; Z79.02 Long term (current) use of antithrombotics/antiplatelets; Z79.51 Long term (current) use of inhaled steroids; Z79.899 Other long term (current) drug therapy; Z87.891 Personal history of nicotine dependence; Z86.73 Personal history of transient ischemic attack (TIA), and cerebral infarction without residual deficits; Z86.79 Personal history of other diseases of the circulatory system; Z87.11 Personal history of peptic ulcer disease; Z87.01 Personal history of pneumonia (recurrent); Z80.9 Family history of malignant neoplasm, unspecified
CPT/HCPCS: 96376 ×2; 96365; 96375; 99285; 36415; 94640 ×4; 94760; 80053; 80048; 85025 ×2; 85610; 85730; 71046; 43235; G0378 ×2; J2930 ×2; J0696 ×2; J2370; J2704; C9113 ×2

== ENCOUNTER 2019-11-21 23:39 | Inpatient (IN) | payer MEDICARE ==
[2019-11-21] MEDS ORDERED: IPRATROPIUM-ALBUTEROL 3 ML NEB INHALATION STA (23:43)
[2019-11-21] MEDS ORDERED: MAGNESIUM SULFATE-D5W PMX 1 GM in DEXTROSE/WATER 1 100ML.BAG IVPB STA (23:43)
[2019-11-21 23:52] VITALS: TEMP 97.7
--- NOTE | 2019-11-21 23:53 | ED ---
SOB HPI - General Stated Complaint: COPD SOB Time Seen by Provider: 11/21/19 23:39 Source: patient, RN/MD, EMS, RN notes reviewed, old records reviewed Mode of arrival: EMS - History of Present Illness Initial Comments: This is a 74-year-old male with a history of COPD who is transferred from [facility] today where he presented earlier with complaints of shortness of breath this started this morning he does have a history of COPD he is refractory to his home medication as well as to his treatment for the same at [facility]. He apparently that hasn't been melena for past couple weeks. He has had medication switched recently by his physician. Please see the report there was transmitted with the patient. He has she was satting the 70s he did improve the 90s after oxygen and treatment. In route he did require 3 updraft treatments in route to. He was noted have elevated troponin at the sending facility. Also an elevated lactic acid. He reports no fevers chills sweats he does have a slight cough. No overt chest pain at this time. No other modifying factors at this time he did have elevated white blood cell count also with left shift no evidence of pneumonia on x-ray. He was given IV Levaquin prior to transfer. MD Complaint: shortness of breath - Related Data Home Medications Medication Instructions Recorded Confirmed Lisinopril-Hctz 10-12.5 mg 1 tab PO DAILY 04/27/14 04/03/19 [Zestoretic 10-12.5] rOPINIRole HCL [Requip] 5 mg PO BID 07/25/18 04/03/19 Pravastatin Sodium 80 mg PO HS 07/27/18 04/03/19 Cholecalciferol [Vitamin D3 (25 1,000 unit PO DAILY 04/03/19 04/03/19 Mcg = 1000 Iu)] Clotrimazole Christiana [Mycelex 10 mg MUCOUS MEM 5XD 04/03/19 04/03/19 Christiana] Lidocaine Viscous 2% [Xylocaine 10 ml MUCOUS MEM Q2H PRN 04/03/19 04/03/19 Viscous] Mometasone Furoate [Asmanex] 1 puff INHALATION RT-HS 04/03/19 04/03/19 Olodaterol HCl [Striverdi Respimat] 2 puff INHALATION RT-DAILY 04/03/19 04/03/19 Previous Rx's Medication Instructions Recorded Acetaminophen Tab [Tylenol] 500 mg PO Q6HR PRN tab 04/04/19 Clopidogrel Bisulfate [Plavix] 75 mg PO DAILY #1 04/04/19 Omeprazole 40 mg PO DAILY #30 capsule. 04/04/19 Sucralfate [Carafate] 1 gm PO BID #30 tab 04/04/19 Allergies Allergy/AdvReac Type Severity Reaction Status Date / Time No Known Allergies Allergy Verified 11/21/19 23:52 Review of Systems ROS Statement: Those systems with pertinent positive or pertinent negative responses have been documented in the HPI. ROS Other: All systems not noted in ROS Statement are negative. Past Medical History Past Medical History: COPD, CVA/TIA, GERD/Reflux, Hyperlipidemia, Hypertension, Pneumonia Additional Past Medical History / Comment(s): Hx of CVA's and TIA's., chronic hypoxic respiratory failure, AAA, DDD WITH BACK PAIN ., HX OF STOMACH ULCER. , ASBESTOSIS, WEARS OXYGEN AT 3.5-5 LITERS. STATES FOLLOWING WITH DR HILLIARD FOR PROSTATE., STATES STOMACH PAIN AFTER TAKING MEDS OR WITH COFFEE IN AM. History of Any Multi-Drug Resistant Organisms: None Reported Past Surgical History: Back Surgery, Hernia Repair Additional Past Surgical History / Comment(s): COLONOSCOPY Past Anesthesia/Blood Transfusion Reactions: No Reported Reaction Past Psychological History: Anxiety, Depression Smoking Status: Former smoker Past Alcohol Use History: None Reported Additional Past Alcohol Use History / Comment(s): QUIT SMOKING 2012, SMOKED 1 PPD Past Drug Use History: None Reported - Past Family History Mother Family Medical History: Cancer Brother(s) Family Medical History: Cancer General Exam - General Exam Comments Initial Comments: This is a well-developed asthenic appearing male who is awake alert oriented 3 General appearance: alert, anxious, in distress Head exam: Present: atraumatic, normocephalic, normal inspection Eye exam: Present: normal appearance, PERRL, EOMI. Absent: scleral icterus, conjunctival injection, periorbital swelling ENT exam: Present: normal exam, mucous membranes moist Neck exam: Present: normal inspection, full ROM, other. Absent: tenderness, meningismus, lymphadenopathy Respiratory exam: Present: wheezes, accessory muscle use, decreased breath sounds (No stridor JVD or bruits). Absent: respiratory distress, rales, rhonchi, stridor Cardiovascular Exam: Present: normal rhythm, tachycardia, normal heart sounds. Absent: systolic murmur, diastolic murmur, rubs, gallop, clicks GI/Abdominal exam: Present: soft, normal bowel sounds. Absent: distended, tenderness, guarding, rebound, rigid Extremities exam: Present: normal inspection, full ROM, normal capillary refill. Absent: tenderness, pedal edema, joint swelling, calf tenderness Back exam: Present: normal inspection Neurological exam: Present: alert, oriented X3, CN II-XII intact Psychiatric exam: Present: normal affect, normal mood Skin exam: Present: warm, dry, intact, normal color. Absent: rash Course Vital Signs 11/21/19 11/22/19 11/22/19 23:49 00:13 00:22 Temperature 97.7 F Pulse Rate 116 H 120 H 127 H Respiratory 30 H Rate Blood Pressure 127/98 O2 Sat by Pulse 86 L Oximetry - Reevaluation(s) Reevaluation #1: 11/22/19 01:00 Evaluation patient reveals he is feeling better after the BiPAP was initiated he did require some Ativan he has improved respiratory rate has improved Medical Decision Making - Medical Decision Making Did discuss the findings the patient and family members as well as with Dr. mackey and Dr. Mccall. Patient will be admitted to intensive care unit for close observation he has previously in the past many no code he does state he would be willing to go on a ventilator for only 5 days if needed he does not want to be placed on one at this point rather try the BiPAP first. Family is in agreement the elevated lactic acid noted on the [facility] records is likely indicative of dehydration. - Lab Data Lab Results 11/22/19 11/22/19 Range/Units 00:15 00:15 PT 12.6 H (9.0-12.0) sec INR 1.3 H (<1.2) Magnesium 2.2 (1.6-2.3) mg/dL - EKG Data -: EKG Interpreted by Me EKG shows normal: sinus rhythm (Sinus tachycardia rate 243899 QRS duration 90 QT since QTC 318/462 that exodeviation inferior infarct of undetermined age no apparent acute ST-T wave elevations.) - Radiology Data Radiology results: report reviewed (I did review the imaging and report no acute findings), image reviewed Disposition Clinical Impression: Encounter for observation due to foreign body in airway, Acute respiratory distress syndrome in adult, Bronchitis, Elevated troponin, Elevated lactic acid level, Dehydration Disposition: ADMITTED IP TO THIS HOSP Condition: Fair Referrals: Luis Price MD [Primary Care Provider] - 1-2 days
[2019-11-22] MEDS ORDERED: LORazepam 2 MG/ML INJ IV STA ×4 (00:05→02:17)
--- NOTE | 2019-11-22 00:39 | XR ---
EXAMINATION TYPE: XR chest 1V DATE OF EXAM: 11/22/2019 COMPARISON: Yesterday HISTORY: Difficulty breathing TECHNIQUE: FINDINGS: There is elevated left diaphragm. There is coarse interstitial infiltrates in the lungs. Th ere is no obvious heart failure. There is some patchy more coalescent infiltrate left lung base. Thor acic aorta is atheromatous. IMPRESSION: Pulmonary fibrosis. Chronic elevated left diaphragm. No definite heart failure. No change compared to recent exam.
[2019-11-22 00:56] LABS: INR 1.3 (<1.2); Prothrombin Time 12.6 sec (9.0-12.0)
[2019-11-22] MEDS ORDERED: MIDAZOLAM 1 MG/ML 5 ML VIAL IV STA (01:12)
[2019-11-22] MEDS ORDERED: SUCCINYLCHOLINE CHLORIDE VIAL 200 MG/10 ML VIAL IV ONE (01:13)
[2019-11-22] MEDS ORDERED: SODIUM CHLORIDE 0.9% 1,000 ML IV SCH (01:15)
[2019-11-22] MEDS ORDERED: PROPOFOL 1,000 MG in EMPTY BAG 1 BAG IV ONE (01:20)
--- NOTE | 2019-11-22 01:47 | XR ---
EXAMINATION TYPE: XR chest 1V confirm line [facility] DATE OF EXAM: 11/22/2019 COMPARISON: Today HISTORY: Check line placement TECHNIQUE: Single view. Findings Endotracheal tube is 2.5 cm from the raul. There is patchy pulmonary interstitial infiltrates with elevation of the left diaphragm unchanged. No definite heart failure. IMPRESSION: Pulmonary extensive interstitial infiltrates unchanged. No obvious heart failure.
[2019-11-22] MEDS ORDERED: LORazepam 2 MG/ML INJ ONE ×2 (01:53→02:20)
[2019-11-22] MEDS ORDERED: SODIUM CHLORIDE 0.9% 1,000 ML IV STA ×2 (01:58→02:27)
--- NOTE | 2019-11-22 02:02 | ED ---
Medical Decision Making - Medical Decision Making Shortly after the patient was to be admitted he suddenly became very dyspneic and with respiratory distress again. Patient was very to In the work of breathing and excessive. After long discussion with the patient family he has elected to be intubated. The patient was successfully intubated by me. Rapid sequence intubation technique was used. Shortly after the central line placement as the patient blood pressure did not respond with IV fluids along he did require vasopressors. The patient began with a bradycardic activity with prolonged intervals. Family is at bedside and aware no further extraordinary efforts to be made to. The patient was apneic and pulseless no Doppler pulses no evidence of cardiac activity and Doppler. Patient was pronounced at 3:[address] Mccall was notified Dr. Banda was notified the medical staff specialist's office was contacted. The family has requested the [facility] home in [facility] - Lab Data Lab Results 11/22/19 11/22/19 11/22/19 Range/Units 00:15 00:15 00:15 PT 12.6 H (9.0-12.0) sec INR 1.3 H (<1.2) Plasma Lactic Acid Cole 4.4 H* (0.7-2.0) mmol/L Magnesium (1.6-2.3) mg/dL Troponin I 0.148 H* (0.000-0.034) ng/mL 11/22/19 Range/Units 00:15 PT (9.0-12.0) sec INR (<1.2) Plasma Lactic Acid Cole (0.7-2.0) mmol/L Magnesium 2.2 (1.6-2.3) mg/dL Troponin I (0.000-0.034) ng/mL Disposition Clinical Impression: Encounter for observation due to foreign body in airway, Acute respiratory distress syndrome in adult, Bronchitis, Elevated troponin, Elevated lactic acid level, Dehydration, Acute respiratory failure, PEA (Pulseless electrical activity) Disposition: Preliminary Cause of : Acute respiratory failure, COPD, asbestosis, PEA arrest Procedures - Central Line Placement Right SC Consent Obtained: emergent situation Prep: mask, gown, gloves, other Central Line Prep: Chlorhexidine scrub Local Anesthesia Used: Lidocaine 1% Amount of Anesthesia Used (mls): 3 Ultrasound Used for Placement: No Central Line Lumen Inserted: triple Central Line Position: good blood return, sutured in place with 3-0 nylon Dressing Applied: Tegaderm Post Procedure X-Ray: other (Catheter tip ascending) Patient Tolerated Procedure: well Additional Comments: The catheter draws back well and flushes well. [place] shows the tip going upward. No evidence of pneumothorax at this - Intubation Sedative: Versed Mg Given: 5 Paralytic: Succinylcholine Mg Given: 80 Laryngoscope: Ybarra Size: 3 ET Tube Size: 8 ET Tube Uncuffed: No (Coughed) Tube Secured Depth (cm): 23 Tube Secured Location: lips Tube Placement Confirmation: visualized tube passing through cords, equal breath sounds bilaterally, confirmation by capnometry Patient Tolerated Procedure: well Intubation Complications: none
[2019-11-22 02:22] LABS: ABG Base Excess -20.4 mmol/L; ABG Oxygen Saturation 95.5 % (94-97); ABG PCO2 32 mmHg (35-45); ABG PO2 117 mmHg (83-108); ABG TCO2 11 mmol/L (19-24); Allen Test Performed? Yes
[2019-11-22 02:25] LABS: ABG HCO3 10 mmol/L (21-25); ABG PH 7.08 (7.35-7.45)
[2019-11-22] MEDS ORDERED: NOREPINEPHRIN 4 MG-0.9% NS PMX 4 MG/250 ML ML IV ONE (02:49)
--- NOTE | 2019-11-22 03:22 | XR ---
EXAMINATION TYPE: XR chest 1V confirm line [facility] DATE OF EXAM: 11/22/2019 COMPARISON: Today HISTORY: Check line placement. TECHNIQUE: Single view FINDINGS: There is a right subclavian catheter that extends into the neck and is probably in the righ t jugular vein. Endotracheal tube is 1.3 cm from the raul. Heart is enlarged. There is coarse interstitial infiltra scott in the lungs. There is mild elevation of the left diaphragm. There are chest leads. IMPRESSION: The right subclavian catheter is malpositioned in the right jugular vein. Endotracheal tube is low and should BE pulled back 2 cm. Extensive pulmonary fibrotic changes. Cardiomegaly. No obvious heart failure.
[2019-11-22] MEDS ORDERED: IPRATROPIUM-ALBUTEROL 3 ML NEB INHALATION SCH (04:00)
[2019-11-22] MEDS ORDERED: NOREPINEPHRINE 4 MG in SODIUM CHLORIDE 0.9% 250 ML IV SCH (04:30)
[2019-11-22 05:18] VITALS: BP 33/20; PULSE 57; RESP 0
[2019-11-22] MEDS ORDERED: methylPREDNISolone SOD SUCCI 125 MG/2 ML VIAL IV SCH (06:00)
[2019-11-22] MEDS ORDERED: LEVOFLOXACIN 500 MG TAB PO SCH (09:00)
--- NOTE | 2019-11-23 00:56 | P.HPIM ---
History of Present Illness please consider this as combined H&P and Discharge summary talked to me about this pt just before mid night (12 am) about possible admission this pt for possible COPD exacerbation ,however work up was not completed yet at that time while in ED before potential admission, however it looks like pt deteriorated quickly , he could not tolerate the BiPAP, pt was intubated and family was at bed side , followed by dropping in BP but pt was DNR as per family and pt wishes as per staff. ICU team were involved, eventually pt shortly thereafter before I have a chance to see or evaluation the pt Past Medical History Past Medical History: COPD, CVA/TIA, GERD/Reflux, Hyperlipidemia, Hypertension, Pneumonia Additional Past Medical History / Comment(s): Hx of CVA's and TIA's., chronic hypoxic respiratory failure, AAA, DDD WITH BACK PAIN ., HX OF STOMACH ULCER. , ASBESTOSIS, WEARS OXYGEN AT 3.5-5 LITERS. STATES FOLLOWING WITH DR HILLIARD FOR PROSTATE., STATES STOMACH PAIN AFTER TAKING MEDS OR WITH COFFEE IN AM. History of Any Multi-Drug Resistant Organisms: None Reported Past Surgical History: Back Surgery, Hernia Repair Additional Past Surgical History / Comment(s): COLONOSCOPY Past Anesthesia/Blood Transfusion Reactions: No Reported Reaction Past Psychological History: Anxiety, Depression Smoking Status: Former smoker Past Alcohol Use History: None Reported Additional Past Alcohol Use History / Comment(s): QUIT SMOKING 2012, SMOKED 1 PPD Past Drug Use History: None Reported - Past Family History Mother Family Medical History: Cancer Brother(s) Family Medical History: Cancer Medications and Allergies Home Medications Medication Instructions Recorded Confirmed Type Lisinopril-Hctz 10-12.5 mg 1 tab PO DAILY 04/27/14 04/03/19 History [Zestoretic 10-12.5] rOPINIRole HCL [Requip] 5 mg PO BID 07/25/18 04/03/19 History Pravastatin Sodium 80 mg PO HS 07/27/18 04/03/19 History Cholecalciferol [Vitamin D3 (25 1,000 unit PO DAILY 04/03/19 04/03/19 History Mcg = 1000 Iu)] Clotrimazole Christiana [Mycelex 10 mg MUCOUS MEM 5XD 04/03/19 04/03/19 History Christiana] Lidocaine Viscous 2% [Xylocaine 10 ml MUCOUS MEM Q2H PRN 04/03/19 04/03/19 History Viscous] Mometasone Furoate [Asmanex] 1 puff INHALATION RT-HS 04/03/19 04/03/19 History Olodaterol HCl [Striverdi Respimat] 2 puff INHALATION RT-DAILY 04/03/19 04/03/19 History Acetaminophen Tab [Tylenol] 500 mg PO Q6HR PRN tab 04/04/19 Rx Clopidogrel Bisulfate [Plavix] 75 mg PO DAILY #1 04/04/19 04/03/19 Rx Omeprazole 40 mg PO DAILY #30 capsule. 04/04/19 Rx Sucralfate [Carafate] 1 gm PO BID #30 tab 04/04/19 Rx Allergies Allergy/AdvReac Type Severity Reaction Status Date / Time No Known Allergies Allergy Verified 11/21/19 23:52 Physical Exam Vitals: Vital Signs Pulse Resp BP Pulse Ox 11/22/19 03:20 57 L 0 L 11/22/19 03:10 64 7 L 11/22/19 03:04 98 18 93/51 96 11/22/19 03:01 82 27 H 45/25 65 L 11/22/19 02:50 96 16 50/25 11/22/19 02:40 85 42 H 76/56 80 L 11/22/19 02:30 96 33 H 62/24 92 L 11/22/19 02:20 98 31 H 114/69 93 L 11/22/19 02:10 92 35 H 47/21 93 L 11/22/19 02:00 93 35 H 56/21 93 L 11/22/19 01:50 92 19 62/48 11/22/19 01:40 92 18 48/24 11/22/19 01:30 113 H 21 103/49 95 11/22/19 01:20 115 H 32 H 90 L 11/22/19 01:09 120 H 36 H 114/97 87 L Results Labs: Abnormal Lab Results - Last 24 Hours (Table) 11/22/19 11/22/19 11/22/19 Range/Units 00:15 00:15 00:15 PT 12.6 H (9.0-12.0) sec INR 1.3 H (<1.2) ABG pH (7.35-7.45) ABG pCO2 (35-45) mmHg ABG pO2 (83-108) mmHg ABG HCO3 (21-25) mmol/L ABG Total CO2 (19-24) mmol/L Plasma Lactic Acid Cole 4.4 H* (0.7-2.0) mmol/L Troponin I 0.148 H* (0.000-0.034) ng/mL 11/22/19 Range/Units 02:18 PT (9.0-12.0) sec INR (<1.2) ABG pH 7.08 L* (7.35-7.45) ABG pCO2 32 L (35-45) mmHg ABG pO2 117 H (83-108) mmHg ABG HCO3 10 L* (21-25) mmol/L ABG Total CO2 11 L (19-24) mmol/L Plasma Lactic Acid Cole (0.7-2.0) mmol/L Troponin I (0.000-0.034) ng/mL
--- NOTE | 2019-11-23 15:07 | CDI ---
Documentation Clarification Form Date: 11/23/2019 02:36:00 PM From: Venessa MULLEN,CCDS,RN Admit Date: 11/22/2019 01:03:00 AM Patient Name: Jono Carlson Visit Number: [id number] Discharge Date: 11/22/2019 03:25:00 AM ATTENTION: The Clinical Documentation Specialists (CDI) and [facility] Coding Staff appreciate your assistance in clarifying documentation. Please respond to the clarification below the line at the bottom and electronically sign. The CDI & [facility] Coding staff will review the response and follow-up if needed. Please note: Queries are made part of the Legal Health Record. If you have any questions, please contact the author of this message via ITS. Dr. Patel Rock After study please render your opinion on the clinical significance ,if any, of noted elevated troponin in ED notes 11/21/2019.. Patient history/risk factors: 74 yo with Hx of Asbestosis, presenting with COPD exacerbation, acute on chronic hypoxic respiratory failure, pt was intubated, followed by dropping BP but pt was DNR. HP notes bradycardiac activity with prolonged intervals. ED notes 11/22/2019 respiratory failure and blood pressures not responding to IV fluids and requiring pressors. Lactic acid elevated thought to be due to dehydration PEA arrest noted in HP. Chest X-ray: extensive pulmonary fibrotic changes , no obvious heart failure ,coarse interstitial infiltrates in the lungs EKG per ED read: normal: normal sinus rhythm(sinus Tachycardia rate [id number] QRS duration 90 QT since QTZ 318/462 that exodevaition inferior infarct of indetermined age, no apparent acute ST-T wave elevations) Labs:11/22 Lactic acid 4.4.Troponin 0.148 Labs: 11/21 from transferring hospital contained with EMR Trop 0.126 and WBCS 16.4 VS 97.7 HR 116 RR 30 BP 127/98 with BP to @ 1:50 of 62/48 and to 50/25 @ 02:50 PaO2 of 70s improved to 90s Treatment: 1LNS fluid bolus times 2, Norepheneprine gtt titrated. Venti Mask, Mechanical ventilation Clinical significance of diagnostic testing and treatment CANNOT be assumed or coded without physician documentation of significance if any. Please clarify what abnormal laboratory signifies: Demand Ischemia Abnormal Lab not clinically significant Type 2 IA 2nd to respiratory failure /COPD exacerbation Unable to determine Other, please specify (Last Revision: July 2017) MTDD
--- NOTE | 2019-11-23 15:12 | CDI ---
Documentation Clarification Form Date: 11/23/2019 01:42:00 PM From: Venessa MULLEN,ERIC,RN Admit Date: 11/22/2019 01:03:00 AM Patient Name: Jono Carlson Visit Number: [id number] Discharge Date: 11/22/2019 03:25:00 AM ATTENTION: The Clinical Documentation Specialists (CDI) and [facility] Coding Staff appreciate your assistance in clarifying documentation. Please respond to the clarification below the line at the bottom and electronically sign. The CDI & [facility] Coding staff will review the response and follow-up if needed. Please note: Queries are made part of the Legal Health Record. If you have any questions, please contact the author of this message via ITS. Dr. Patel Rock After study please render your opinion on the clinical significance ,if any, of patients blood pressure that did not respond to IV fluids bolus and requiring vasopressor. Patient history/risk factors: 74 yo with Hx of Asbestosis, COPD exacerbation, acute on chronic hypoxic respiratory failure, pt was intubated, followed by dropping BP but pt was DNR. Clinical Indicators: ED 11/21 Notes pt did have elevated WBCS with left shift no pneumonia on chest x-ray,,hyponatremia, Elevated Troponins ED notes 11/22/2019 pt with respiratory failure and blood pressures not responding to IV fluids and requiring pressors. Lactic acid elevated thought to be due to dehydration, ED 11/21 Notes pt did have elevated WBCS with left shift no pneumonia on chest x- ,hyponatremia, Elevated Troponins. PEA arrest noted in HP. Chest X-ray: extensive pulmonary fibrotic changes , no obvious heart failure ,coarse interstitial infiltrates in the lungs Labs:11/22 Lactic acid 4.4.Troponin 0.148 Labs: 11/21 from transferring hospital contained with EMR Trop 0.126 and WBCS 16.4 VS 97.7 HR 116 RR 30 BP 127/98 with BP to @ 1:50 of 62/48 and to 50/25 @ 02:50. Treatment: 1LNS fluid bolus times 2, Norepheneprine gtt titrated. In your professional opinion, can you please render your opinion on clinical significance, if any BP dropping requiring fluid bolus and IV Pressors ? Shock 2nd to (please specify) Other, please specify Unable to determine (Last Revision: July 2017) MTDD
--- NOTE | 2019-11-27 07:35 | CDI ---
Documentation Clarification Form Date: 11/23/2019 01:42:00 PM From: Venessa MULLEN,CCDS,RN Phone: [phone] Admit Date: 11/22/2019 01:03:00 AM Patient Name: Jono Carlson Visit Number: [id number] Discharge Date: 11/22/2019 03:25:00 AM ATTENTION: The Clinical Documentation Specialists (CDI) and [facility] Coding Staff appreciate your assistance in clarifying documentation. Please respond to the clarification below the line at the bottom and electronically sign. The CDI & [facility] Coding staff will review the response and follow-up if needed. Please note: Queries are made part of the Legal Health Record. If you have any questions, please contact the author of this message via ITS. Dr. Patel Rock After study please render your opinion on the clinical significance ,if any, of patients blood pressure that did not respond to IV fluids bolus and requiring vasopressor. Patient history/risk factors: 74 with Hx of Asbestosis, COPD exacerbation, acute on chronic hypoxic respiratory failure, pt was intubated, followed by dropping BP but pt was DNR. Clinical Indicators: ED 11/21 Notes pt did have elevated WBCS with left shift no pneumonia on chest x-ray,,hyponatremia, Elevated Troponins ED notes 11/22/2019 pt with respiratory failure and blood pressures not responding to IV fluids and requiring pressors. Lactic acid elevated thought to be due to dehydration, ED 11/21 Notes pt did have elevated WBCS with left shift no pneumonia on chest x- ,hyponatremia, Elevated Troponins. PEA arrest noted in HP. Chest X-ray: extensive pulmonary fibrotic changes , no obvious heart failure ,coarse interstitial infiltrates in the lungs Labs:11/22 Lactic acid 4.4.Troponin 0.148 Labs: 11/21 from transferring hospital contained with EMR Trop 0.126 and WBCS 16.4 VS 97.7 HR 116 RR 30 BP 127/98 with BP to @ 1:50 of 62/48 and to 50/25 @ 02:50. Treatment: 1LNS fluid bolus times 2, Norepheneprine gtt titrated. In your professional opinion, can you please render your opinion on clinical significance, if any BP dropping requiring fluid bolus and IV Pressors ? Shock 2nd to (please specify) Other, please specify Unable to determine (Last Revision: July 2017) MTDD
--- NOTE | 2019-11-27 07:37 | CDI ---
Documentation Clarification Form Date: 11/23/2019 02:36:00 PM From: Venessa MULLEN,CCDS,RN Phone: [phone] Admit Date: 11/22/2019 01:03:00 AM Patient Name: Jono Carlson Visit Number: [id number] Discharge Date: 11/22/2019 03:25:00 AM ATTENTION: The Clinical Documentation Specialists (CDI) and [facility] Coding Staff appreciate your assistance in clarifying documentation. Please respond to the clarification below the line at the bottom and electronically sign. The CDI & [facility] Coding staff will review the response and follow-up if needed. Please note: Queries are made part of the Legal Health Record. If you have any questions, please contact the author of this message via ITS. Dr. Patel Rock After study please render your opinion on the clinical significance ,if any, of noted elevated troponin in ED notes 11/21/2019.. Patient history/risk factors: 74 yo with Hx of Asbestosis, presenting with COPD exacerbation, acute on chronic hypoxic respiratory failure, pt was intubated, followed by dropping BP but pt was DNR. HP notes bradycardiac activity with prolonged intervals. ED notes 11/22/2019 respiratory failure and blood pressures not responding to IV fluids and requiring pressors. Lactic acid elevated thought to be due to dehydration PEA arrest noted in HP. Chest X-ray: extensive pulmonary fibrotic changes , no obvious heart failure ,coarse interstitial infiltrates in the lungs EKG per ED read: normal: normal sinus rhythm(sinus Tachycardia rate 249802 QRS duration 90 QT since QTZ 318/462 that exodevaition inferior infarct of indetermined age, no apparent acute ST-T wave elevations) Labs:11/22 Lactic acid 4.4.Troponin 0.148 Labs: 11/21 from transferring hospital contained with EMR Trop 0.126 and WBCS 16.4 VS 97.7 HR 116 RR 30 BP 127/98 with BP to @ 1:50 of 62/48 and to 50/25 @ 02:50 PaO2 of 70s improved to 90s Treatment: 1LNS fluid bolus times 2, Norepheneprine gtt titrated. Venti Mask, Mechanical ventilation Clinical significance of diagnostic testing and treatment CANNOT be assumed or coded without physician documentation of significance if any. Please clarify what abnormal laboratory signifies: Demand Ischemia Abnormal Lab not clinically significant Type 2 MT 2nd to respiratory failure /COPD exacerbation Unable to determine Other, please specify (Last Revision: July 2017) MTDD
--- NOTE | 2019-12-27 13:35 | CDI ---
Date: 11/23/2019 01:42:00 PM From: Venessa MULLEN,CCDS,RN Phone: [phone] Admit Date: 11/22/2019 01:03:00 AM Patient Name: Jono Carlson Visit Number: [id number] Discharge Date: 11/22/2019 03:25:00 AM ATTENTION: The Clinical Documentation Specialists (CDI) and [facility] Coding Staff appreciate your assistance in clarifying documentation. Please respond to the clarification below the line at the bottom and electronically sign. The CDI & [facility] Coding staff will review the response and follow-up if needed. Please note: Queries are made part of the Legal Health Record. If you have any questions, please contact the author of this message via ITS. Dr. Patel Rock After study please render your opinion on the clinical significance ,if any, of patients blood pressure that did not respond to IV fluids bolus and requiring vasopressor. Patient history/risk factors: 74 with Hx of Asbestosis, COPD exacerbation, acute on chronic hypoxic respiratory failure, pt was intubated, followed by dropping BP but pt was DNR. Clinical Indicators: ED 11/21 Notes pt did have elevated WBCS with left shift no pneumonia on chest x-ray,,hyponatremia, Elevated Troponins ED notes 11/22/2019 pt with respiratory failure and blood pressures not responding to IV fluids and requiring pressors. Lactic acid elevated thought to be due to dehydration, PEA arrest noted in HP. Chest X-ray: extensive pulmonary fibrotic changes, no obvious heart failure ,coarse interstitial infiltrates in the lungs Labs:11/22 Lactic acid 4.4.Troponin 0.148 Labs: 11/21 from transferring hospital contained with EMR Trop 0.126 and WBCS 16.4 VS 97.7 HR 116 RR 30 BP 127/98 with BP to @ 1:50 of 62/48 and to 50/25 @ 02:50. Treatment: 1LNS fluid bolus times 2, Norephenephrine gtt titrated. In your professional opinion, can you please render your opinion on clinical significance, if any BP dropping requiring fluid bolus and IV Pressors ? Shock 2nd to (please specify) Other, please specify Unable to determine (Last Revision: July 2017) MTDD
--- NOTE | 2019-12-27 13:36 | CDI ---
Date: 11/23/2019 02:36:00 PM From: Venessa MULLEN,CCDS,RN Phone: [phone] Admit Date: 11/22/2019 01:03:00 AM Patient Name: Jono Carlson Visit Number: [id number] Discharge Date: 11/22/2019 03:25:00 AM ATTENTION: The Clinical Documentation Specialists (CDI) and [facility] Coding Staff appreciate your assistance in clarifying documentation. Please respond to the clarification below the line at the bottom and electronically sign. The CDI & [facility] Coding staff will review the response and follow-up if needed. Please note: Queries are made part of the Legal Health Record. If you have any questions, please contact the author of this message via ITS. Dr. Patel Rock After study please render your opinion on the clinical significance ,if any, of noted elevated troponin in ED notes 11/21/2019.. Patient history/risk factors: 74 yo with Hx of Asbestosis, presenting with COPD exacerbation, acute on chronic hypoxic respiratory failure, pt was intubated, followed by dropping BP but pt was DNR. HP notes bradycardiac activity with prolonged intervals. ED notes 11/22/2019 respiratory failure and blood pressures not responding to IV fluids and requiring pressors. Lactic acid elevated thought to be due to dehydration PEA arrest noted in HP. Chest X-ray: extensive pulmonary fibrotic changes , no obvious heart failure ,coarse interstitial infiltrates in the lungs EKG per ED read: normal: normal sinus rhythm(sinus Tachycardia rate 714516 QRS duration 90 QT since QTZ 318/462 that exodevaition inferior infarct of indetermined age, no apparent acute ST-T wave elevations) Labs:11/22 Lactic acid 4.4.Troponin 0.148 Labs: 11/21 from transferring hospital contained with EMR Trop 0.126 and WBCS 16.4 VS 97.7 HR 116 RR 30 BP 127/98 with BP to @ 1:50 of 62/48 and to 50/25 @ 02:50 PaO2 of 70s improved to 90s Treatment: 1LNS fluid bolus times 2, Norepheneprine gtt titrated. Venti Mask, Mechanical ventilation Clinical significance of diagnostic testing and treatment CANNOT be assumed or coded without physician documentation of significance if any. Please clarify what abnormal laboratory signifies: Demand Ischemia Abnormal Lab not clinically significant Type 2 MA 2nd to respiratory failure /COPD exacerbation Unable to determine Other, please specify (Last Revision: July 2017) MTDD
--- NOTE | 2019-12-27 21:26 | ED ---
Medical Decision Making - Medical Decision Making Clarification medical charting for coronary was twofold 1 the blood pressure was low and did not respond to IV fluids and the patient did require pressors this was felt to be likely secondary to a combination of intravascular volume depletion and cardiogenic shock all secondary to the COPD exacerbation with respiratory distress and strain placed on the heart. In addition to this elevated troponin was likely also secondary to the cardiac strain from the above. - Lab Data Lab Results 11/22/19 11/22/19 11/22/19 Range/Units 00:15 00:15 00:15 PT 12.6 H (9.0-12.0) sec INR 1.3 H (<1.2) Plasma Lactic Acid Cole 4.4 H* (0.7-2.0) mmol/L Magnesium (1.6-2.3) mg/dL Troponin I 0.148 H* (0.000-0.034) ng/mL 11/22/19 Range/Units 00:15 PT (9.0-12.0) sec INR (<1.2) Plasma Lactic Acid Cole (0.7-2.0) mmol/L Magnesium 2.2 (1.6-2.3) mg/dL Troponin I (0.000-0.034) ng/mL Disposition Clinical Impression: Encounter for observation due to foreign body in airway, Acute respiratory distress syndrome in adult, Bronchitis, Elevated troponin, Elevated lactic acid level, Dehydration, Acute respiratory failure, PEA (Pulseless electrical activity) Disposition: Preliminary Cause of : Pulseless electrical activity cardiac arrest, acute respiratory failure
== END 2019-11-22 03:25 | disposition expired | DRG 208 ==
LOC: EC 23:39 → 2SICU 11-22 01:03 → UNDOADMIN 11-22 01:03 → UNDODISIN 11-22 03:52
PROVIDERS: ADMIT Internal Medicine; ATTEND Internal Medicine
PROC: 0BH17EZ Insertion of Endotracheal Airway into Trachea, Via Natural or Artificial Opening (ICD-10-PCS; principal; 2019-11-22)
PROC: 5A1935Z Respiratory Ventilation, Less than 24 Consecutive Hours (ICD-10-PCS; principal; 2019-11-22)
PROC: 05HM33Z Insertion of Infusion Device into Right Internal Jugular Vein, Percutaneous Approach (ICD-10-PCS; 2019-11-22)
DX: J44.1 Chronic obstructive pulmonary disease with (acute) exacerbation (principal); J96.21 Acute and chronic respiratory failure with hypoxia; R57.0 Cardiogenic shock; I46.9 Cardiac arrest, cause unspecified; J61 Pneumoconiosis due to asbestos and other mineral fibers; T17.908A Unspecified foreign body in respiratory tract, part unspecified causing other injury, initial encounter; I51.9 Heart disease, unspecified; Z66 Do not resuscitate; E78.5 Hyperlipidemia, unspecified; F32.9 Major depressive disorder, single episode, unspecified; F41.9 Anxiety disorder, unspecified; I10 Essential (primary) hypertension; I71.4 Abdominal aortic aneurysm, without rupture; K21.9 Gastro-esophageal reflux disease without esophagitis; M54.9 Dorsalgia, unspecified; E86.0 Dehydration; R00.1 Bradycardia, unspecified; R79.89 Other specified abnormal findings of blood chemistry; Z99.81 Dependence on supplemental oxygen; Z87.891 Personal history of nicotine dependence; Z87.11 Personal history of peptic ulcer disease; Z86.73 Personal history of transient ischemic attack (TIA), and cerebral infarction without residual deficits; Z87.01 Personal history of pneumonia (recurrent); Z79.02 Long term (current) use of antithrombotics/antiplatelets; Z79.899 Other long term (current) drug therapy
CPT/HCPCS: 31500; 36415; 36556; 36600; 71045; 82805; 83605; 83735; 84484; 85610; 93005; 94002; 94640; 94660; 96361; 96365; 96366; 96367; 96375; 96376; 99285